=== PATIENT | female | born 1990 | race Caucasian/White ===

== ENCOUNTER → 2016-12-01 | Outpatient (CLI) | payer BC, OTHER ==
--- NOTE | 2016-12-02 07:51 | CONS ---
Consultation note for sleep apnea. A 26-year-old female patient was diagnosed having severe obstructive sleep apnea based on a home sleep study that was done through her primary care physician's office, Dr. Karman Quinn. She was referred to me for a CPAP treatment. She has a very complicated history of Budd-Chiari syndrome, ADHD, chronic back pain, anxiety, panic and chronic atrial fibrillation. 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 She is also on a combination of Strattera, Xanax and trazodone. Further more she is and she is in her fifth month of gestation. At this point in time, she is having excessive snoring. She stops breathing at night. She wakes up tired and fatigued during the day. She goes to bed around 10 p.m. and it takes her sometimes an hour or so to fall asleep. She is waking up tired and she has problem with memory, concentration and she feels sleepy throughout the day. She has also issues with dry mouth and occasional grinding of the teeth. PAST MEDICAL HISTORY: 1. Budd-Chiari malformation. 2. Seizure disorder. 3. ADHD. 4. Chronic back pain. 5. Anxiety/panic. 6. Chronic atrial fibrillation. 7. History of insomnia. Surgical history includes 3 back surgeries, 1 brain surgery, cholecystectomy, tubes in the ears. Drug allergies are to ULTRAM, DEMEROL, VALIUM, PENICILLINS, IODINE, LATEX, TRAMADOL, SEROQUEL, NEURONTIN and BACLOFEN. Outpatient medications include: 1. Morphine ( ) mg p.o. twice a day. 2. Strattera 40 mg p.o. q. day. 3. Xanax 0.5 mg on a p.r.n. basis. 4. Trazodone 100 mg p.o. q. day. Family history is positive for PAUL in the sister and both parents. REVIEW OF SYSTEMS: Twelve-point review of systems was done, positive findings all mentioned above in history of present illness. Her weight has been fluctuating and currently she is a 193 pounds, which is up due to . She has poor sleep quality in general. No sleep paralysis. No hallucinations. No cataplexy. Her current Quinton score is 20. BP 135/89. Pulse 100. Respirations 16. Temperature 98.7. Saturation 98% on room air. Weight is 193. Height is 5 feet 0 inches. Neck size is 16-1/4. BMI is 37. GENERAL APPEARANCE: Obese, calm, comfortable. HEENT: Short neck. Crowding of posterior pharynx. There is no goiter or neck mass. LUNGS: Diminished, otherwise, clear. HEART: Sounds regular rate and rhythm. Normal S1, S2. ABDOMEN: She has a gravid uterus. ( ) or guarding. EXTREMITIES: No edema, no cyanosis or clubbing. IMPRESSION: 1. Obstructive sleep apnea. 2. Chronic insomnia. 3. Budd-Chiari malformation with a previous surgical intervention. 4. Attention deficit hyperactivity disorder. 5. Chronic back pain. 6. Chronic narcotic medication use. 7. Anxiety, panic. 8. Chronic atrial fibrillation. PLAN: 1. Will review the home sleep study from Dr. Kamran Quinn's office. 2. Will set up this patient for a CPAP titration. 3. Continue the rest of the medications and keep them unchanged. 4. Will continue to follow. JUAN ANTONIO
== END | disposition home or self-care (01) ==
LOC: SLEEP 14:38
PROVIDERS: ATTEND Internal Medicine Critical Care Medicine
DX: G47.33 Obstructive sleep apnea (adult) (pediatric) (principal); F51.04 Psychophysiologic insomnia; F90.9 Attention-deficit hyperactivity disorder, unspecified type; M54.9 Dorsalgia, unspecified; G89.29 Other chronic pain; F41.9 Anxiety disorder, unspecified; F41.0 Panic disorder [episodic paroxysmal anxiety]; I48.2 Chronic atrial fibrillation; G93.5 Compression of brain
CPT/HCPCS: 99211

== ENCOUNTER → 2017-01-05 | Outpatient (CLI) | payer BC, OTHER ==
[2017-01-05 12:55] LABS: ALT 35 U/L (9-52); AST 21 U/L (14-36); Alkaline Phosphatase 78 U/L (38-126); Anion Gap 11 mmol/L; Blood Urea Nitrogen 6 mg/dL (7-17); Calcium 9.5 mg/dL (8.4-10.2); Carbon Dioxide 25 mmol/L (22-30); Chloride 104 mmol/L (98-107); Glucose 74 mg/dL (74-99); Non-African American GFR(MDRD) >60 (>60 ml/min/1.73 sqM); Potassium 4.5 mmol/L (3.5-5.1); Sodium 140 mmol/L (137-145); Total Bilirubin 0.2 mg/dL (0.2-1.3); Total Protein 7.6 g/dL (6.3-8.2)
[2017-01-05 12:56] LABS: CH 28.3; CHCM 32.8; HCT 34.5 % (34.0-46.0); HDW 2.92; HGB 11.6 gm/dL (11.4-16.0); MCH 29.1 pg (25.0-35.0); MCHC 33.6 g/dL (31.0-37.0); MCV 86.6 fL (80.0-100.0); Mean Platelet Volume 6.7; RBC 3.99 m/uL (3.80-5.40); RDW 13.9 % (11.5-15.5); WBC 7.8 k/uL (3.8-10.6)
== END | disposition home or self-care (01) ==
LOC: LABWHC1 12:02
PROVIDERS: ATTEND Psychiatry & Neurology Pain Medicine
DX: O00.90 Unspecified ectopic pregnancy without intrauterine pregnancy (principal); Z3A.00 Weeks of gestation of pregnancy not specified
CPT/HCPCS: 36415; 80053; 84702; 85027

== ENCOUNTER 2017-05-12 12:18 | Emergency (ER) | payer BC, OTHER ==
[2017-05-12] MEDS ORDERED: ASPIRIN 81 MG PO STA (12:45)
[2017-05-12] MEDS ORDERED: NITROGLYCERIN OINT 1 INCH/GM PACKET TOPICAL STA (12:45)
--- NOTE | 2017-05-12 12:47 | ED ---
General Adult HPI - General Chief complaint: Chest Pain Stated complaint: Chest Pain Time Seen by Provider: 05/12/17 12:25 Source: patient, EMS, RN notes reviewed Mode of arrival: EMS Limitations: no limitations - History of Present Illness Initial comments: This is a 26-year-old female who presents to the emergency department stating that she has had range surgery back surgery X topic multiple strokes in multiple heart attacks. Patient states she's never had a catheterization of her heart or a stent placed. Patient states she comes in today because she's had a three-day history of constant chest pain. Patient states the chest pain is worsened by movement of her neck. Patient denies any shortness of breath or difficulty breathing. Patient denies any diaphoretic episodes. Patient denies abdominal pain patient denies nausea vomiting diarrhea. Patient denies headache patient denies numbness weakness. Patient denies lightheadedness dizziness or near syncopal episode. - Related Data Home Medications Medication Instructions Recorded Confirmed ALPRAZolam [Xanax] 0.5 mg PO QID 05/12/17 05/12/17 Beclomethasone Dipropionate [Qvar 2 puff INHALATION RT-BID 05/12/17 05/12/17 80 mcg] Carvedilol [Coreg] 6.25 mg PO BID 05/12/17 05/12/17 Levalbuterol Hfa Inhaler [Xopenex 1 puff INHALATION RT-Q6H PRN 05/12/17 05/12/17 Hfa Inhaler] Menthol [Biofreeze] 1 applic TOPICAL Q6H PRN 05/12/17 05/12/17 Morphine Sulfate [Ms Contin] 60 mg PO Q12HR 05/12/17 05/12/17 Ondansetron HCl [Zofran] 8 mg PO Q8H PRN 05/12/17 05/12/17 traZODone HCL [Desyrel] 100 mg PO HS 05/12/17 05/12/17 Allergies Allergy/AdvReac Type Severity Reaction Status Date / Time amoxicillin Allergy Unknown Verified 05/12/17 14:05 baclofen Allergy Unknown Verified 05/12/17 14:05 diazepam [From Valium] Allergy Unknown Verified 05/12/17 14:05 eszopiclone [From Lunesta] Allergy Unknown Verified 05/12/17 14:05 gabapentin Allergy Unknown Verified 05/12/17 14:05 iodine Allergy Unknown Verified 05/12/17 14:05 latex Allergy Unknown Verified 05/12/17 14:05 lorazepam Allergy Unknown Verified 05/12/17 14:05 meperidine [From Demerol] Allergy Unknown Verified 05/12/17 14:05 nitrofurantoin Allergy Unknown Verified 05/12/17 14:05 Penicillins Allergy Unknown Verified 05/12/17 14:05 phenytoin [From Dilantin] Allergy Unknown Verified 05/12/17 14:05 quetiapine [From Seroquel] Allergy Unknown Verified 05/12/17 14:05 sulfamethoxazole Allergy Unknown Verified 05/12/17 14:05 [From Bactrim] tramadol Allergy Unknown Verified 05/12/17 14:05 trimethoprim [From Bactrim] Allergy Unknown Verified 05/12/17 14:05 chlorine Allergy Unknown Uncoded 05/12/17 12:39 loxagile acid Allergy Unknown Uncoded 05/12/17 12:43 loxaglate Allergy Unknown Uncoded 05/12/17 12:39 Review of Systems ROS Statement: Those systems with pertinent positive or pertinent negative responses have been documented in the HPI. ROS Other: All systems not noted in ROS Statement are negative. Past Medical History Past Medical History: Atrial Fibrillation, CVA/TIA, Fibromyalgia, Myocardial Infarction (CO), Supraventricular Tachycardia (SVT) Additional Past Medical History / Comment(s): low BP, tacycardia History of Any Multi-Drug Resistant Organisms: MRSA Date of last positivie culture/infection: 2009 MDRO Source:: face Past Surgical History: Back Surgery, Cholecystectomy Additional Past Surgical History / Comment(s): loop recorder, brain Past Psychological History: Anxiety, Depression Smoking Status: Current some day smoker Past Alcohol Use History: None Reported Past Drug Use History: None Reported General Exam - General Exam Comments Initial Comments: GENERAL: Patient is well-developed and well-nourished. Patient is nontoxic and well- hydrated and is in no acute distress. ENT: Neck is soft and supple. No significant lymphadenopathy is noted. Oropharynx is clear. Moist mucous membranes. Neck has full range of motion without eliciting any pain. EYES: The sclera were anicteric and conjunctiva were pink and moist. Extraocular movements were intact and pupils were equal round and reactive to light. Eyelids were unremarkable. PULMONARY: Unlabored respirations. Good breath sounds bilaterally. No audible rales rhonchi or wheezing was noted. CARDIOVASCULAR: There is a regular rate and rhythm without any murmurs gallops or rubs. ABDOMEN: Soft and nontender with normal bowel sounds. No palpable organomegaly was noted. There is no palpable pulsatile mass. SKIN: Skin is clear with no lesions or rashes and otherwise unremarkable. NEUROLOGIC: Patient is alert and oriented x3. Cranial nerves II through XII are grossly intact. Motor and sensory are also intact. Normal speech, volume and content. Symmetrical smile. MUSCULOSKELETAL: Normal extremities with adequate strength and full range of motion. LYMPHATICS: No significant lymphadenopathy is noted PSYCHIATRIC: Normal psychiatric evaluation. Limitations: no limitations Course Vital Signs 05/12/17 05/12/17 12:25 13:49 Temperature 98.4 F Pulse Rate 114 H 94 Respiratory 18 16 Rate Blood Pressure 93/57 122/80 O2 Sat by Pulse 96 99 Oximetry Medical Decision Making - Medical Decision Making EKG shows sinus tachycardia at 108 bpm ND interval is 134 QRS is 98 QT interval 370 QTC is 495. Patient's EKG shows some T-wave inversions in leads V1 through V3 as well as lead 3. There is no ST segment elevation noted Patient states that she has had V. tach SVT and A. fib. Because the patient's significant cardiac history and stroke history we attempted to get old records we were unable to. I told the patient I wanted to stay in the emergency department she stated she had to go get her kids so she refused to stay she understands the risks she signed out AMA - Lab Data Result diagrams: 05/12/17 12:44 05/12/17 13:15 Lab Results 05/12/17 05/12/17 05/12/17 Range/Units 12:44 12:44 13:15 WBC 11.7 H (3.8-10.6) k/uL RBC 4.50 (3.80-5.40) m/uL Hgb 12.2 (11.4-16.0) gm/dL Hct 37.2 (34.0-46.0) % MCV 82.6 (80.0-100.0) fL MCH 27.1 (25.0-35.0) pg MCHC 32.9 (31.0-37.0) g/dL RDW 15.3 (11.5-15.5) % Plt Count 335 (150-450) k/uL Neutrophils % 62 % Lymphocytes % 29 % Monocytes % 5 % Eosinophils % 2 % Basophils % 1 % Neutrophils # 7.2 (1.3-7.7) k/uL Lymphocytes # 3.4 (1.0-4.8) k/uL Monocytes # 0.6 (0-1.0) k/uL Eosinophils # 0.2 (0-0.7) k/uL Basophils # 0.1 (0-0.2) k/uL PT 9.9 (9.0-12.0) sec INR 1.0 (<1.2) APTT 20.4 L (22.0-30.0) sec Sodium (137-145) mmol/L Potassium (3.5-5.1) mmol/L Chloride (98-107) mmol/L Carbon Dioxide (22-30) mmol/L Anion Gap mmol/L BUN (7-17) mg/dL Creatinine (0.52-1.04) mg/dL Est GFR (MDRD) Af Amer (>60 ml/min/1.73 sqM) Est GFR (MDRD) Non-Af (>60 ml/min/1.73 sqM) Glucose (74-99) mg/dL Calcium (8.4-10.2) mg/dL Magnesium (1.6-2.3) mg/dL Total Bilirubin (0.2-1.3) mg/dL AST (14-36) U/L ALT (9-52) U/L Alkaline Phosphatase (38-126) U/L Total Creatine Kinase 48 (30-135) U/L CK-MB (CK-2) 0.7 (0.0-2.4) ng/mL CK-MB (CK-2) Rel Index 1.5 Troponin I <0.012 (0.000-0.034) ng/mL Total Protein (6.3-8.2) g/dL Albumin (3.5-5.0) g/dL 05/12/17 Range/Units 13:15 WBC (3.8-10.6) k/uL RBC (3.80-5.40) m/uL Hgb (11.4-16.0) gm/dL Hct (34.0-46.0) % MCV (80.0-100.0) fL MCH (25.0-35.0) pg MCHC (31.0-37.0) g/dL RDW (11.5-15.5) % Plt Count (150-450) k/uL Neutrophils % % Lymphocytes % % Monocytes % % Eosinophils % % Basophils % % Neutrophils # (1.3-7.7) k/uL Lymphocytes # (1.0-4.8) k/uL Monocytes # (0-1.0) k/uL Eosinophils # (0-0.7) k/uL Basophils # (0-0.2) k/uL PT (9.0-12.0) sec INR (<1.2) APTT (22.0-30.0) sec Sodium 140 (137-145) mmol/L Potassium 4.0 (3.5-5.1) mmol/L Chloride 106 (98-107) mmol/L Carbon Dioxide 23 (22-30) mmol/L Anion Gap 11 mmol/L BUN 3 L (7-17) mg/dL Creatinine 0.55 (0.52-1.04) mg/dL Est GFR (MDRD) Af Amer >60 (>60 ml/min/1.73 sqM) Est GFR (MDRD) Non-Af >60 (>60 ml/min/1.73 sqM) Glucose 82 (74-99) mg/dL Calcium 9.6 (8.4-10.2) mg/dL Magnesium 1.8 (1.6-2.3) mg/dL Total Bilirubin 0.2 (0.2-1.3) mg/dL AST 22 (14-36) U/L ALT 37 (9-52) U/L Alkaline Phosphatase 67 (38-126) U/L Total Creatine Kinase (30-135) U/L CK-MB (CK-2) (0.0-2.4) ng/mL CK-MB (CK-2) Rel Index Troponin I (0.000-0.034) ng/mL Total Protein 6.9 (6.3-8.2) g/dL Albumin 4.0 (3.5-5.0) g/dL Disposition Clinical Impression: Chest pain Disposition: Left Against Medical Advice Referrals: Benji Quinn MD [Primary Care Provider] - 1-2 days Time of Disposition: 14:57
[2017-05-12 13:02] LABS: Basophils # (A) 0.1 k/uL (0-0.2); Basophils % (A) 1 %; Eosinophils # (A) 0.2 k/uL (0-0.7); Eosinophils % (A) 2 %; HCT 37.2 % (34.0-46.0); HGB 12.2 gm/dL (11.4-16.0); Lymphocytes # (A) 3.4 k/uL (1.0-4.8); Lymphocytes % (A) 29 %; MCH 27.1 pg (25.0-35.0); MCHC 32.9 g/dL (31.0-37.0); MCV 82.6 fL (80.0-100.0); Mean Platelet Volume 7.7; Monocytes # (A) 0.6 k/uL (0-1.0); Monocytes % (A) 5 %; Neutrophils # (A) 7.2 k/uL (1.3-7.7); Neutrophils % (A) 62 %; Platelet Count 335 k/uL (150-450); RDW 15.3 % (11.5-15.5); WBC 11.7 k/uL (3.8-10.6)
--- NOTE | 2017-05-12 13:22 | XR ---
EXAMINATION TYPE: XR chest 2V DATE OF EXAM: 05/12/2017 COMPARISON: NONE INDICATION: Chest pain TECHNIQUE: Frontal and lateral views of the chest are obtained. FINDINGS: The heart size is normal. The pulmonary vasculature is normal. The lungs are clear. There is a scoliosis present with convexity to the right. Right thoracic cavity is slightly smaller than the left. IMPRESSION: 1. No acute pulmonary process. 2. Scoliosis
[2017-05-12 13:34] LABS: Prothrombin Time 9.9 sec (9.0-12.0)
[2017-05-12 13:35] LABS: ALT 37 U/L (9-52); AST 22 U/L (14-36); Alkaline Phosphatase 67 U/L (38-126); Anion Gap 11 mmol/L; Blood Urea Nitrogen 3 mg/dL (7-17); Calcium 9.6 mg/dL (8.4-10.2); Carbon Dioxide 23 mmol/L (22-30); Chloride 106 mmol/L (98-107); Glucose 82 mg/dL (74-99); Magnesium 1.8 mg/dL (1.6-2.3); Sodium 140 mmol/L (137-145); Total Bilirubin 0.2 mg/dL (0.2-1.3); Total Protein 6.9 g/dL (6.3-8.2)
[2017-05-12 13:35] LABS: Partial Thromboplastin Time 20.4 sec (22.0-30.0)
[2017-05-12 13:48] LABS: Creatine Kinase 48 U/L (30-135)
[2017-05-12 14:01] LABS: Creatine Kinase MB 0.7 ng/mL (0.0-2.4); Troponin I <0.012 ng/mL (0.000-0.034)
[2017-05-12 23:27] VITALS: BP 127/69; PULSE 82; RESP 18; TEMP 98.1
== END 2017-05-12 15:02 | disposition left against medical advice (07) ==
LOC: EC 12:18
DX: R07.9 Chest pain, unspecified (principal); I48.91 Unspecified atrial fibrillation; M79.7 Fibromyalgia; I25.2 Old myocardial infarction; F32.9 Major depressive disorder, single episode, unspecified; F41.9 Anxiety disorder, unspecified; F17.200 Nicotine dependence, unspecified, uncomplicated; Z86.73 Personal history of transient ischemic attack (TIA), and cerebral infarction without residual deficits; Z86.14 Personal history of Methicillin resistant Staphylococcus aureus infection; Z79.51 Long term (current) use of inhaled steroids; Z79.891 Long term (current) use of opiate analgesic; Z79.899 Other long term (current) drug therapy; Z88.0 Allergy status to penicillin; Z88.2 Allergy status to sulfonamides; Z88.8 Allergy status to other drugs, medicaments and biological substances; Z88.6 Allergy status to analgesic agent; Z91.040 Latex allergy status; Z88.5 Allergy status to narcotic agent; Z91.048 Other nonmedicinal substance allergy status
CPT/HCPCS: 36415; 71046; 80053; 82550; 82553; 83735; 84484; 85025; 85610; 85730; 93005; 99285

== ENCOUNTER 2017-05-13 01:39 | Observation (INO) | payer BC, OTHER ==
[2017-05-13] MEDS ORDERED: SODIUM CHLORIDE 0.9% 1,000 ML IV STA ×2 (02:34)
[2017-05-13] MEDS ORDERED: MORPHINE SULFATE 5 MG/ML SYRINGE IV STA (02:34)
[2017-05-13] MEDS ORDERED: RX INFO: IV CONTRAST WAS GIVEN 1 EACH MISC MISCELLANE PRN (02:34)
[2017-05-13] MEDS ORDERED: diphenhydrAMINE 50 MG/ML 1 ML VIAL IVP STA (02:35)
[2017-05-13] MEDS ORDERED: FAMOTIDINE 20 MG/2 ML VIAL IV STA (02:35)
[2017-05-13] MEDS ORDERED: methylPREDNISolone SOD SUCCI 125 MG/2 ML VIAL IV STA (02:35)
[2017-05-13 02:45] LABS: Basophils % (A) 0 %; Eosinophils # (A) 0.1 k/uL (0-0.7); Eosinophils % (A) 1 %; HCT 38.7 % (34.0-46.0); HGB 12.2 gm/dL (11.4-16.0); Lymphocytes % (A) 6 %; MCH 26.9 pg (25.0-35.0); MCHC 31.6 g/dL (31.0-37.0); MCV 85.1 fL (80.0-100.0); Mean Platelet Volume 7.3; Monocytes # (A) 0.3 k/uL (0-1.0); Monocytes % (A) 2 %; Neutrophils # (A) 16.5 k/uL (1.3-7.7); Neutrophils % (A) 92 %; Platelet Count 394 k/uL (150-450); RBC 4.55 m/uL (3.80-5.40); RDW 15.6 % (11.5-15.5)
[2017-05-13 02:49] LABS: ALT 32 U/L (9-52); AST 27 U/L (14-36); Albumin 4.5 g/dL (3.5-5.0); Alkaline Phosphatase 67 U/L (38-126); Anion Gap 15 mmol/L; Blood Urea Nitrogen 3 mg/dL (7-17); Calcium 10.2 mg/dL (8.4-10.2); Carbon Dioxide 20 mmol/L (22-30); Chloride 103 mmol/L (98-107); Glucose 217 mg/dL (74-99); Lipase 34 U/L (23-300); Magnesium 1.6 mg/dL (1.6-2.3); Potassium 4.4 mmol/L (3.5-5.1); Sodium 138 mmol/L (137-145); Total Bilirubin 0.3 mg/dL (0.2-1.3); Total Protein 7.7 g/dL (6.3-8.2)
[2017-05-13 02:56] LABS: Creatine Kinase 56 U/L (30-135)
[2017-05-13 03:09] LABS: Creatine Kinase MB 0.7 ng/mL (0.0-2.4); Troponin I <0.012 ng/mL (0.000-0.034)
--- NOTE | 2017-05-13 03:10 | ED ---
General Adult HPI - General Chief complaint: Chest Pain Stated complaint: CHEST PAIN Time Seen by Provider: 05/13/17 01:54 Source: patient, family, RN notes reviewed, old records reviewed Mode of arrival: ambulatory Limitations: no limitations - History of Present Illness Initial comments: This is a 18-year-old female ER for evaluation of chest pain. Patient presents today as a repeat evaluation of chest pain. Patient states she has significant medical problems according stroke heart attack and multiple rhythm abnormalities with her heart. Patient denies any fevers congestion. She denies any symptom improvement when she went home. She denies nausea no vomiting no fevers. - Related Data Home Medications Medication Instructions Recorded Confirmed ALPRAZolam [Xanax] 0.5 mg PO QID 05/12/17 05/13/17 Beclomethasone Dipropionate [Qvar 2 puff INHALATION RT-BID 05/12/17 05/13/17 80 mcg] Carvedilol [Coreg] 6.25 mg PO BID 05/12/17 05/13/17 Levalbuterol Hfa Inhaler [Xopenex 1 puff INHALATION RT-Q6H PRN 05/12/17 05/13/17 Hfa Inhaler] Menthol [Biofreeze] 1 applic TOPICAL Q6H PRN 05/12/17 05/13/17 Morphine Sulfate [Ms Contin] 60 mg PO Q12HR 05/12/17 05/13/17 Ondansetron HCl [Zofran] 8 mg PO Q8H PRN 05/12/17 05/13/17 traZODone HCL [Desyrel] 100 mg PO HS 05/12/17 05/13/17 Allergies Allergy/AdvReac Type Severity Reaction Status Date / Time amoxicillin Allergy Unknown Verified 05/13/17 01:45 baclofen Allergy Unknown Verified 05/13/17 01:45 diazepam [From Valium] Allergy Unknown Verified 05/13/17 01:45 eszopiclone [From Lunesta] Allergy Unknown Verified 05/13/17 01:45 gabapentin Allergy Unknown Verified 05/13/17 01:45 iodine Allergy Unknown Verified 05/13/17 01:45 latex Allergy Unknown Verified 05/13/17 01:45 lorazepam Allergy Unknown Verified 05/13/17 01:45 meperidine [From Demerol] Allergy Unknown Verified 05/13/17 01:45 nitrofurantoin Allergy Unknown Verified 05/13/17 01:45 Penicillins Allergy Unknown Verified 05/13/17 01:45 phenytoin [From Dilantin] Allergy Unknown Verified 05/13/17 01:45 quetiapine [From Seroquel] Allergy Unknown Verified 05/13/17 01:45 sulfamethoxazole Allergy Unknown Verified 05/13/17 01:45 [From Bactrim] tramadol Allergy Unknown Verified 05/13/17 01:45 trimethoprim [From Bactrim] Allergy Unknown Verified 05/13/17 01:45 chlorine Allergy Unknown Uncoded 05/13/17 01:45 loxagile acid Allergy Unknown Uncoded 05/13/17 01:45 loxaglate Allergy Unknown Uncoded 05/13/17 01:45 Review of Systems ROS Statement: Those systems with pertinent positive or pertinent negative responses have been documented in the HPI. ROS Other: All systems not noted in ROS Statement are negative. Past Medical History Past Medical History: Atrial Fibrillation, CVA/TIA, Fibromyalgia, Myocardial Infarction (CO), Supraventricular Tachycardia (SVT) Additional Past Medical History / Comment(s): low BP, tacycardia History of Any Multi-Drug Resistant Organisms: MRSA Date of last positivie culture/infection: 2009 MDRO Source:: face Past Surgical History: Back Surgery, Cholecystectomy Additional Past Surgical History / Comment(s): loop recorder, brain Past Psychological History: Anxiety, Depression Smoking Status: Current some day smoker Past Alcohol Use History: None Reported Past Drug Use History: None Reported General Exam Limitations: no limitations General appearance: alert, in no apparent distress, anxious Head exam: Present: atraumatic, normocephalic, normal inspection Eye exam: Present: normal appearance, PERRL, EOMI. Absent: scleral icterus, conjunctival injection, periorbital swelling ENT exam: Present: normal exam, mucous membranes moist Neck exam: Present: normal inspection. Absent: tenderness, meningismus, lymphadenopathy Respiratory exam: Present: normal lung sounds bilaterally. Absent: respiratory distress, wheezes, rales, rhonchi, stridor Cardiovascular Exam: Present: regular rate, normal rhythm, normal heart sounds. Absent: systolic murmur, diastolic murmur, rubs, gallop, clicks GI/Abdominal exam: Present: soft, normal bowel sounds. Absent: distended, tenderness, guarding, rebound, rigid Extremities exam: Present: normal inspection, full ROM, normal capillary refill. Absent: tenderness, pedal edema, joint swelling, calf tenderness Back exam: Present: normal inspection Neurological exam: Present: alert, oriented X3, CN II-XII intact Psychiatric exam: Present: normal affect, normal mood Skin exam: Present: warm, dry, intact, normal color. Absent: rash Course Vital Signs 05/13/17 01:40 Temperature 97.8 F Pulse Rate 98 Respiratory 22 Rate Blood Pressure 137/91 O2 Sat by Pulse 100 Oximetry - Reevaluation(s) Reevaluation #1: 05/13/17 03:43 ER visit from earlier in the day is reviewed. Patient states she is not feeling better than prior ER visit Reevaluation #2: 05/13/17 05:01 Patient was reexamined after, patient developed left-sided facial droop: No other neurological symptoms noticed, that did appear to improve over tincture of time after she did get sent for brain CT. NIH was 1, has improved. Not a TPA candidate secondary to low neurological symptoms. Patient will be admitted again for continued neurological monitor EKG Findings - EKG Comments: EKG Findings:: EKG shows normal sinus rhythm rate of 89, UT 152, QRS 102, QTc 464 Medical Decision Making - Medical Decision Making 18 female will be For cardiac observation, and initial labs, troponin, CT angios of chest are all negative - Lab Data Result diagrams: 05/13/17 02:11 05/13/17 02:11 Lab Results 05/13/17 05/13/17 05/13/17 Range/Units 02:11 02:11 02:11 WBC 18.0 H (3.8-10.6) k/uL RBC 4.55 (3.80-5.40) m/uL Hgb 12.2 (11.4-16.0) gm/dL Hct 38.7 (34.0-46.0) % MCV 85.1 (80.0-100.0) fL MCH 26.9 (25.0-35.0) pg MCHC 31.6 (31.0-37.0) g/dL RDW 15.6 H (11.5-15.5) % Plt Count 394 (150-450) k/uL Neutrophils % 92 % Lymphocytes % 6 % Monocytes % 2 % Eosinophils % 1 % Basophils % 0 % Neutrophils # 16.5 H (1.3-7.7) k/uL Lymphocytes # 1.0 (1.0-4.8) k/uL Monocytes # 0.3 (0-1.0) k/uL Eosinophils # 0.1 (0-0.7) k/uL Basophils # 0.0 (0-0.2) k/uL PT (9.0-12.0) sec INR (<1.2) APTT (22.0-30.0) sec D-Dimer (<0.60) mg/L FEU Sodium 138 (137-145) mmol/L Potassium 4.4 (3.5-5.1) mmol/L Chloride 103 (98-107) mmol/L Carbon Dioxide 20 L (22-30) mmol/L Anion Gap 15 mmol/L BUN 3 L (7-17) mg/dL Creatinine 0.60 (0.52-1.04) mg/dL Est GFR (MDRD) Af Amer >60 (>60 ml/min/1.73 sqM) Est GFR (MDRD) Non-Af >60 (>60 ml/min/1.73 sqM) Glucose 217 H (74-99) mg/dL Calcium 10.2 (8.4-10.2) mg/dL Magnesium 1.6 (1.6-2.3) mg/dL Total Bilirubin 0.3 (0.2-1.3) mg/dL AST 27 (14-36) U/L ALT 32 (9-52) U/L Alkaline Phosphatase 67 (38-126) U/L Total Creatine Kinase 56 (30-135) U/L CK-MB (CK-2) 0.7 (0.0-2.4) ng/mL CK-MB (CK-2) Rel Index 1.3 Troponin I <0.012 (0.000-0.034) ng/mL NT-Pro-B Natriuret Pep pg/mL Total Protein 7.7 (6.3-8.2) g/dL Albumin 4.5 (3.5-5.0) g/dL Lipase 34 (23-300) U/L HCG, Qual Urine Color Urine Appearance (Clear) Urine pH (5.0-8.0) Ur Specific Monitor (1.001-1.035) Urine Protein (Negative) Urine Glucose (UA) (Negative) Urine Ketones (Negative) Urine Blood (Negative) Urine Nitrite (Negative) Urine Bilirubin (Negative) Urine Urobilinogen (<2.0) mg/dL Ur Leukocyte Esterase (Negative) Urine HCG, Qual (Not Detectd) 05/13/17 05/13/17 05/13/17 Range/Units 02:11 02:11 02:52 WBC (3.8-10.6) k/uL RBC (3.80-5.40) m/uL Hgb (11.4-16.0) gm/dL Hct (34.0-46.0) % MCV (80.0-100.0) fL MCH (25.0-35.0) pg MCHC (31.0-37.0) g/dL RDW (11.5-15.5) % Plt Count (150-450) k/uL Neutrophils % % Lymphocytes % % Monocytes % % Eosinophils % % Basophils % % Neutrophils # (1.3-7.7) k/uL Lymphocytes # (1.0-4.8) k/uL Monocytes # (0-1.0) k/uL Eosinophils # (0-0.7) k/uL Basophils # (0-0.2) k/uL PT 9.8 (9.0-12.0) sec INR 1.0 (<1.2) APTT 20.4 L (22.0-30.0) sec D-Dimer 0.58 (<0.60) mg/L FEU Sodium (137-145) mmol/L Potassium (3.5-5.1) mmol/L Chloride (98-107) mmol/L Carbon Dioxide (22-30) mmol/L Anion Gap mmol/L BUN (7-17) mg/dL Creatinine (0.52-1.04) mg/dL Est GFR (MDRD) Af Amer (>60 ml/min/1.73 sqM) Est GFR (MDRD) Non-Af (>60 ml/min/1.73 sqM) Glucose (74-99) mg/dL Calcium (8.4-10.2) mg/dL Magnesium (1.6-2.3) mg/dL Total Bilirubin (0.2-1.3) mg/dL AST (14-36) U/L ALT (9-52) U/L Alkaline Phosphatase (38-126) U/L Total Creatine Kinase (30-135) U/L CK-MB (CK-2) (0.0-2.4) ng/mL CK-MB (CK-2) Rel Index Troponin I (0.000-0.034) ng/mL NT-Pro-B Natriuret Pep 97 pg/mL Total Protein (6.3-8.2) g/dL Albumin (3.5-5.0) g/dL Lipase (23-300) U/L HCG, Qual Urine Color Colorless Urine Appearance Clear (Clear) Urine pH 5.5 (5.0-8.0) Ur Specific Monitor 1.002 (1.001-1.035) Urine Protein Negative (Negative) Urine Glucose (UA) 2+ H (Negative) Urine Ketones Negative (Negative) Urine Blood Negative (Negative) Urine Nitrite Negative (Negative) Urine Bilirubin Negative (Negative) Urine Urobilinogen <2.0 (<2.0) mg/dL Ur Leukocyte Esterase Negative (Negative) Urine HCG, Qual (Not Detectd) 05/13/17 05/13/17 Range/Units 02:52 02:52 WBC (3.8-10.6) k/uL RBC (3.80-5.40) m/uL Hgb (11.4-16.0) gm/dL Hct (34.0-46.0) % MCV (80.0-100.0) fL MCH (25.0-35.0) pg MCHC (31.0-37.0) g/dL RDW (11.5-15.5) % Plt Count (150-450) k/uL Neutrophils % % Lymphocytes % % Monocytes % % Eosinophils % % Basophils % % Neutrophils # (1.3-7.7) k/uL Lymphocytes # (1.0-4.8) k/uL Monocytes # (0-1.0) k/uL Eosinophils # (0-0.7) k/uL Basophils # (0-0.2) k/uL PT (9.0-12.0) sec INR (<1.2) APTT (22.0-30.0) sec D-Dimer (<0.60) mg/L FEU Sodium (137-145) mmol/L Potassium (3.5-5.1) mmol/L Chloride (98-107) mmol/L Carbon Dioxide (22-30) mmol/L Anion Gap mmol/L BUN (7-17) mg/dL Creatinine (0.52-1.04) mg/dL Est GFR (MDRD) Af Amer (>60 ml/min/1.73 sqM) Est GFR (MDRD) Non-Af (>60 ml/min/1.73 sqM) Glucose (74-99) mg/dL Calcium (8.4-10.2) mg/dL Magnesium (1.6-2.3) mg/dL Total Bilirubin (0.2-1.3) mg/dL AST (14-36) U/L ALT (9-52) U/L Alkaline Phosphatase (38-126) U/L Total Creatine Kinase (30-135) U/L CK-MB (CK-2) (0.0-2.4) ng/mL CK-MB (CK-2) Rel Index Troponin I (0.000-0.034) ng/mL NT-Pro-B Natriuret Pep pg/mL Total Protein (6.3-8.2) g/dL Albumin (3.5-5.0) g/dL Lipase (23-300) U/L HCG, Qual Not Detected Urine Color Urine Appearance (Clear) Urine pH (5.0-8.0) Ur Specific Monitor (1.001-1.035) Urine Protein (Negative) Urine Glucose (UA) (Negative) Urine Ketones (Negative) Urine Blood (Negative) Urine Nitrite (Negative) Urine Bilirubin (Negative) Urine Urobilinogen (<2.0) mg/dL Ur Leukocyte Esterase (Negative) Urine HCG, Qual Not Detected (Not Detectd) Disposition Clinical Impression: Chest pain, CVA (cerebral vascular accident), TIA (transient ischemic attack) Disposition: ADMITTED IP TO THIS HOSP Condition: Undetermined
[2017-05-13 03:12] LABS: D-Dimer 0.58 mg/L FEU (<0.60); Prothrombin Time 9.8 sec (9.0-12.0)
[2017-05-13 03:15] LABS: Appearance,Urine Clear (Clear); Bilirubin,Urine Negative (Negative); Blood,Urine Negative (Negative); Color,Urine Colorless; Glucose,Urine (UA) 2+ (Negative); Ketones,Urine Negative (Negative); Leukocyte Esterase,Urine Negative (Negative); Nitrite,Urine Negative (Negative); PH, Urine 5.5 (5.0-8.0); Protein,Urine Negative (Negative); Specific Gravity,Urine 1.002 (1.001-1.035); Urobilinogen,Urine <2.0 mg/dL (<2.0)
[2017-05-13 03:24] LABS: Partial Thromboplastin Time 20.4 sec (22.0-30.0)
[2017-05-13] MEDS ORDERED: MORPHINE SULFATE 5 MG/ML SYRINGE IV PRN (03:44)
[2017-05-13] MEDS ORDERED: NITROGLYCERIN SL TABS 0.4 MG TAB SUBLINGUAL PRN (03:44)
[2017-05-13] MEDS ORDERED: ACETAMINOPHEN IV (For NPO) 1,000 MG in EMPTY BAG 1 BAG IVPB STA (03:52)
--- NOTE | 2017-05-13 04:09 | CT ---
EXAM: CT Angiography Chest With Intravenous Contrast CLINICAL HISTORY: Reason: Pain TECHNIQUE: Axial computed tomographic angiography images of the chest with intravenous contrast using pulmonary embolism protocol. CTDI is 123.7 mGy and DLP is 620.50 mGy-cm. This CT exam was performed using one or more of the following dose reduction techniques: automated exposure control, adjustment of the mA and/or kV according to patient size, and/or use of iterative reconstruction technique. MIP reconstructed images were created and reviewed. Coronal and sagittal reformatted images were created and reviewed. COMPARISON: None. FINDINGS: Limitations: Suboptimal opacification of the pulmonary arteries. Artifact from contrast in the superior vena cava. Pulmonary arteries: The main pulmonary artery is patent without filling defects. The right and left pulmonary arteries are patent without large filling defect. The proximal subsegmental branches demonstrate no obvious abnormalities. Distal subsegmental branches are limited. Aorta: No acute findings. No thoracic aortic aneurysm. Lungs: Unremarkable. No mass. No consolidation. Pleural space: Unremarkable. No significant effusion. No pneumothorax. Heart: Unremarkable. No cardiomegaly. No significant pericardial effusion. No evidence of RV dysfunction. Bones/joints: The osseous thorax is unaltered by S-shaped scoliosis of the thoracic spine. No acute fracture. No dislocation. Soft tissues: Unremarkable. Lymph nodes: Unremarkable. No enlarged lymph nodes. IMPRESSION: Suboptimal imaging of the pulmonary arteries. However, the main, right and left pulmonary arteries demonstrate no definitive evidence for pulmonary embolism. Subsegmental branch evaluation is limited. No segmental airspace disease.
--- NOTE | 2017-05-13 05:02 | CT ---
EXAM: CT Head Without Intravenous Contrast CLINICAL HISTORY: Reason: pain TECHNIQUE: Axial computed tomography images of the head/brain without intravenous contrast. CTDI is 57.4 mGy and DLP is 941.30 mGy-cm. This CT exam was performed using one or more of the following dose reduction techniques: automated exposure control, adjustment of the mA and/or kV according to patient size, and/or use of iterative reconstruction technique. COMPARISON: None. FINDINGS: Brain: The basilar cisterns are patent. No hemorrhage. No significant white matter disease. No edema. Ventricles: Unremarkable. No ventriculomegaly. Bones/joints: Unremarkable. No acute fracture. Suboccipital craniotomy identified. Soft tissues: Unremarkable. Sinuses: Unremarkable as visualized. No acute sinusitis. Mastoid air cells: Unremarkable as visualized. No mastoid effusion. IMPRESSION: Suboccipital craniotomy identified. No acute intracranial process identified.
[2017-05-13] MEDS ORDERED: HEPARIN SODIUM,PORCINE 5,000 UNIT/ML 1 ML VIAL IV PRN (05:06)
[2017-05-13] MEDS ORDERED: HEPARIN SODIUM,PORCINE 5,000 UNIT/ML 1 ML VIAL IV ONE (05:06)
[2017-05-13] MEDS ORDERED: HEPARIN SOD,PORK IN 0.45% NACL 25,000 UNIT in 0.45% NACL 1 500ML.BAG IV SCH (05:15)
[2017-05-13] MEDS: SODIUM CHLORIDE 0.9% 1,000 ML IV SCH ×3 (06:37→17:12)
[2017-05-13 08:53] LABS: Creatine Kinase 39 U/L (30-135)
[2017-05-13] MEDS ORDERED: ACETAMINOPHEN TAB 325 MG TAB PO PRN (08:53)
[2017-05-13] MEDS ORDERED: PANTOPRAZOLE 40 MG/10 ML VIAL IVP SCH (09:00)
[2017-05-13] MEDS ORDERED: ATORVASTATIN 80 MG TAB PO SCH (09:00)
[2017-05-13] MEDS ORDERED: METOPROLOL TARTRATE 25 MG TAB PO SCH (09:00)
[2017-05-13 09:05] LABS: Creatine Kinase MB 0.4 ng/mL (0.0-2.4); Troponin I <0.012 ng/mL (0.000-0.034)
[2017-05-13] MEDS ORDERED: MENTHOL-CAMPHOR LOTION 222 APPLIC/222 ML BOTTLE TOPICAL PRN (09:26)
[2017-05-13] MEDS ORDERED: DOBUTamine DRIP for NUC MED 500 MG in DEXTROSE/WATER 1 250ML.BAG IV ONE (10:20)
--- NOTE | 2017-05-13 10:33 | P.CRDCN ---
History of Present Illness Consult reason: chest pain History of present illness: Patient interviewed and examined in the ESU with nurse practitioner Atypical chest discomfort Multitude of other medical complaints Known atrial fibrillation followed at [facility] Cardiac enzymes are normal EKG shows [address] depressions in anterior precordial leads Impression Atypical chest discomfort known atrial fibrillation Suggest 2-D echo and Doppler study Dobutamine stress echo If normal she should go back in follow-up with her primary knifeman and general repairer in [place] Past Medical History Past Medical History: Atrial Fibrillation, Asthma, CVA/TIA, Eye Disorder, Fibromyalgia, Myocardial Infarction ([place]), Pneumonia, Sleep Apnea/CPAP/BIPAP, Supraventricular Tachycardia (SVT) Additional Past Medical History / Comment(s): Pt states she is currently being treated for a sinus infection. Other HX: Pt states she has been told she has had at least 4 MIs determined by EKG (pt states she has never had a cardiac cath), pt states she has had multiple CVAs with L arm and L leg weakness as a residual, tachycardia, hypotension, PAUL-no device yet, nasal polypes, L eye limited vision, L eye strabismus with surgical correction, chronic back pain, scoliosis as a child (had surgery), bronchitis, hypoglycemia. Last Myocardial Infarction Date:: unkn History of Any Multi-Drug Resistant Organisms: MRSA Date of last positivie culture/infection: 2009 MDRO Source:: face Past Surgical History: Back Surgery, Cholecystectomy Additional Past Surgical History / Comment(s): Brain surgery for malformation, loop recorder, 2 back surgeries-rods since removed but pt states still has piece of a screw left. Past Anesthesia/Blood Transfusion Reactions: No Reported Reaction Smoking Status: Former smoker - Past Family History Mother Family Medical History: Respiratory Disorder Additional Family Medical History / Comment(s): Bronchitis, TB. Mother is . Medications and Allergies Home Medications Medication Instructions Recorded Confirmed Type ALPRAZolam [Xanax] 0.5 mg PO QID 05/12/17 05/13/17 History Beclomethasone Dipropionate [Qvar 2 puff INHALATION RT-BID 05/12/17 05/13/17 History 80 mcg] Carvedilol [Coreg] 6.25 mg PO BID 05/12/17 05/13/17 History Levalbuterol Hfa Inhaler [Xopenex 1 puff INHALATION RT-Q6H PRN 05/12/17 History Hfa Inhaler] Menthol [Biofreeze] 1 applic TOPICAL Q6H PRN 05/12/17 05/13/17 History Morphine Sulfate [Ms Contin] 60 mg PO Q12HR 05/12/17 05/13/17 History Ondansetron HCl [Zofran] 8 mg PO Q8H PRN 05/12/17 05/13/17 History traZODone HCL [Desyrel] 100 mg PO HS 05/12/17 05/13/17 History Allergies Allergy/AdvReac Type Severity Reaction Status Date / Time amoxicillin Allergy Unknown Verified 05/13/17 06:54 baclofen Allergy Unknown Verified 05/13/17 06:54 diazepam [From Valium] Allergy Unknown Verified 05/13/17 06:54 eszopiclone [From Lunesta] Allergy Unknown Verified 05/13/17 06:54 gabapentin Allergy Unknown Verified 05/13/17 06:54 iodine Allergy Unknown Verified 05/13/17 06:54 latex Allergy Unknown Verified 05/13/17 06:54 lorazepam Allergy Unknown Verified 05/13/17 06:54 meperidine [From Demerol] Allergy Unknown Verified 05/13/17 06:54 nitrofurantoin Allergy Unknown Verified 05/13/17 06:54 Penicillins Allergy Unknown Verified 05/13/17 06:54 phenytoin [From Dilantin] Allergy Unknown Verified 05/13/17 06:54 quetiapine [From Seroquel] Allergy Unknown Verified 05/13/17 06:54 sulfamethoxazole Allergy Unknown Verified 05/13/17 06:54 [From Bactrim] tramadol Allergy Unknown Verified 05/13/17 06:54 trimethoprim [From Bactrim] Allergy Unknown Verified 05/13/17 06:54 chlorine Allergy Unknown Uncoded 05/13/17 01:45 loxagile acid Allergy Unknown Uncoded 05/13/17 01:45 loxaglate Allergy Unknown Uncoded 05/13/17 01:45 Physical Exam Vitals: Vital Signs Temp Pulse Resp BP Pulse Ox 05/13/17 10:00 97.8 F 97 16 116/84 97 05/13/17 09:31 97 18 116/84 96 05/13/17 07:53 88 18 127/71 96 05/13/17 05:33 90 18 125/69 94 L 05/13/17 03:18 104 H 134/84 98 05/13/17 01:40 97.8 F 98 22 137/91 100 Intake and Output 05/12/17 05/13/17 05/13/17 22:59 06:59 14:59 Intake Total 0 Balance 0 Intake: IV 0 Heparin Sod,Pork in 0.45% 0 NaCl 25,000 unit In 0.45 % NaCl 1 500ml.bag @ 10. 45 UNITS/KG/HR 20 mls/hr IV .Q24H FRANK Rx#: [id number] Intake, IV Titration 0 Amount Sodium Chloride 0.9% 1, 0 000 ml @ 100 mls/hr IV . Q10H STA Rx#:[id number] Other: Weight 95.708 kg Results 05/13/17 02:11 05/13/17 02:11 Cardiac Enzymes 05/13/17 05/13/17 05/13/17 Range/Units 02:11 02:11 07:43 AST 27 (14-36) U/L CK-MB (CK-2) 0.7 0.4 (0.0-2.4) ng/mL Troponin I <0.012 <0.012 (0.000-0.034) ng/mL Coagulation 05/13/17 Range/Units 02:11 PT 9.8 (9.0-12.0) sec APTT 20.4 L (22.0-30.0) sec CBC 05/13/17 Range/Units 02:11 WBC 18.0 H (3.8-10.6) k/uL RBC 4.55 (3.80-5.40) m/uL Hgb 12.2 (11.4-16.0) gm/dL Hct 38.7 (34.0-46.0) % Plt Count 394 (150-450) k/uL Comprehensive Metabolic Panel 05/13/17 Range/Units 02:11 Sodium 138 (137-145) mmol/L Potassium 4.4 (3.5-5.1) mmol/L Chloride 103 (98-107) mmol/L Carbon Dioxide 20 L (22-30) mmol/L BUN 3 L (7-17) mg/dL Creatinine 0.60 (0.52-1.04) mg/dL Glucose 217 H (74-99) mg/dL Calcium 10.2 (8.4-10.2) mg/dL AST 27 (14-36) U/L ALT 32 (9-52) U/L Alkaline Phosphatase 67 (38-126) U/L Total Protein 7.7 (6.3-8.2) g/dL Albumin 4.5 (3.5-5.0) g/dL Current Medications Generic Name Dose Route Start Last Admin Trade Name Freq PRN Reason Stop Dose Admin Acetaminophen 650 mg 05/13/17 08:53 05/13/17 09:13 Tylenol Tab PO 650 mg Q6HR PRN Administration Fever and/ or MILD Pain Alprazolam 0.5 mg 05/13/17 13:00 Xanax PO QID [facility] Aspirin 325 mg 05/14/17 09:00 Aspirin PO DAILY [facility] Atorvastatin Calcium 80 mg 05/13/17 09:00 05/13/17 09:12 Lipitor PO 80 mg DAILY FRANK Administration Carvedilol 6.25 mg 05/13/17 21:00 Coreg PO BID [facility] Heparin Sodium (Porcine) 0 unit 05/13/17 05:06 Heparin IV PER PROTOCOL PRN Low PTT Protocol Sodium Chloride 1,000 mls @ 100 mls/hr 05/13/17 02:34 05/13/17 06:36 Saline 0.9% IV 05/13/17 12:33 Not Given .Q10H STA Sodium Chloride 1,000 mls @ 100 mls/hr 05/13/17 03:45 05/13/17 06:37 Saline 0.9% IV 100 mls/hr .Q10H FRANK Administration Heparin Sodium/Sodium Chloride 500 mls @ 20 mls/hr 05/13/17 05:15 05/13/17 05 :35 25,000 unit/ Sodium Chloride IV 10.45 units/kg/hr .Q24H FRANK 20 mls/hr Protocol Administration 10.45 UNITS/KG/HR Metoprolol Tartrate 25 mg 05/13/17 09:00 05/13/17 09:13 Lopressor PO 25 mg BID [facility]ANK Administration Miscellaneous Information 1 each 05/13/17 02:34 Rx Info: Iv Contrast Was Given MISCELLANE 05/15/17 02:34 DAILY PRN Per Protocol Morphine Sulfate 4 mg 05/13/17 03:44 Morphine Sulfate IV Q5M PRN Chest Pain Morphine Sulfate 60 mg 05/13/17 21:00 Ms Contin PO Q12HR FRANK Nitroglycerin 0.4 mg 05/13/17 03:44 Nitrostat SUBLINGUAL Q5M PRN Chest Pain Non-Formulary Medication 1 applic 05/13/17 09:26 Menthol [Biofreeze] TOPICAL Q6H PRN Pain Pantoprazole Sodium 40 mg 05/13/17 09:00 05/13/17 09:09 Protonix IVP 40 mg DAILY [facility] Administration Trazodone HCl 100 mg 05/13/17 21:00 Desyrel PO HS [facility] Intake and Output 05/12/17 05/13/17 05/13/17 22:59 06:59 14:59 Intake Total 0 Balance 0 Intake: IV 0 Heparin Sod,Pork in 0.45% 0 NaCl 25,000 unit In 0.45 % NaCl 1 500ml.bag @ 10. 45 UNITS/KG/HR 20 mls/hr IV .Q24H FRANK Rx#: [id number] Intake, IV Titration 0 Amount Sodium Chloride 0.9% 1, 0 000 ml @ 100 mls/hr IV . Q10H STA Rx#:[id number] Other: Weight 95.708 kg 05/13/17 02:11 05/13/17 02:11
--- NOTE | 2017-05-13 10:43 | P.CRDCN ---
History of Present Illness Consult date: 05/13/17 History of present illness: Mrs. Velasco a 26-year-old female with past medical history significant for paroxysmal a-fib, asthma, fibromyalgia, sleep apnea, CVA, brain surgery, anxiety, depression and states she has had 4 heart attacks with no stents of cardiac catheterization performed. She follows with Dr. Qureshi out of [facility]. We have been asked to see her in consultation for complaints of chest pain. She states she was at Dr. Quinn's office for her routine monthly pain medication refill when she developed pain in her left chest described as pinching. The pain went into her left arm, neck and face. She also complaints of left facial numbness and tingling. She had associated shortness of breath, dizziness and palpitations. Although she states it feels different than her typical a-fib. The discomfort was intermittent and she is currently chest pain free at the time of my exam. She states she has seen many cardiologists in the last 10 years and has underwent a stress test, loop recorder implantation, holter monitors and event monitors. She has been told she has had 4 heart attacks baesd on her EKG but has never underwent coronary angiography. EKG shows sinus mechanism with ST depression in anterior leads. There is no old for comparison. Chest xray negative for an acute cardiopulmonary process. CTA negative for PE. Laboratory data reviewed, WBC 18, hgb 12.2, plt 394, potassium 4.4, magnesium 1.6, cardiac enzymes negative x3. Current cardiac medications include carvedilol 6.25 mg BID. Review of Systems At the time of my exam CONSTITUTIONAL: Denies fever. Denies chills. EYES: Denies blurred vision. Denies vision changes. Denies eye pain. EARS, NOSE, MOUTH & THROAT: Denies headache. Denies sore throat. Denies ear pain. CARDIOVASCULAR: Complains of reproducible muscular skeletal-type chest pain. Denies shortness of breath. Denies orthopnea. Denies PND. Denies palpitations. RESPIRATORY: Denies cough. GASTROINTESTINAL: Denies abdominal pain. Denies diarrhea. Denies constipation. Denies nausea. Denies vomiting. MUSCULOSKELETAL: Denies myalgias. INTEGUMENTARY: Denies pruitis. Denies rash. NEUROLOGIC: Denies numbness. Denies tingling. Denies weakness. PSYCHIATRIC: Denies anxiety. Denies depression. ENDOCRINE: Denies fatigue. Denies weight change. Denies polydipsia. Denies polyurina. GENITOURINARY: Denies burning, hematuria or urgency with micturation. HEMATOLOGIC: Denies history of anemia. Denies bleeding. Past Medical History Past Medical History: Atrial Fibrillation, Asthma, CVA/TIA, Eye Disorder, Fibromyalgia, Myocardial Infarction (AR), Pneumonia, Sleep Apnea/CPAP/BIPAP, Supraventricular Tachycardia (SVT) Additional Past Medical History / Comment(s): Pt states she is currently being treated for a sinus infection. Other HX: Pt states she has been told she has had at least 4 MIs determined by EKG (pt states she has never had a cardiac cath), pt states she has had multiple CVAs with L arm and L leg weakness as a residual, tachycardia, hypotension, PAUL-no device yet, nasal polypes, L eye limited vision, L eye strabismus with surgical correction, chronic back pain, scoliosis as a child (had surgery), bronchitis, hypoglycemia. Last Myocardial Infarction Date:: unkn History of Any Multi-Drug Resistant Organisms: MRSA Date of last positivie culture/infection: 2009 MDRO Source:: face Past Surgical History: Back Surgery, Cholecystectomy Additional Past Surgical History / Comment(s): Brain surgery for malformation, loop recorder, 2 back surgeries-rods since removed but pt states still has piece of a screw left. Past Anesthesia/Blood Transfusion Reactions: No Reported Reaction Smoking Status: Former smoker - Past Family History Mother Family Medical History: Respiratory Disorder Additional Family Medical History / Comment(s): Bronchitis, TB. Mother is . Medications and Allergies Home Medications Medication Instructions Recorded Confirmed Type ALPRAZolam [Xanax] 0.5 mg PO QID 05/12/17 05/13/17 History Beclomethasone Dipropionate [Qvar 2 puff INHALATION RT-BID 05/12/17 05/13/17 History 80 mcg] Carvedilol [Coreg] 6.25 mg PO BID 05/12/17 05/13/17 History Levalbuterol Hfa Inhaler [Xopenex 1 puff INHALATION RT-Q6H PRN 05/12/17 History Hfa Inhaler] Menthol [Biofreeze] 1 applic TOPICAL Q6H PRN 05/12/17 05/13/17 History Morphine Sulfate [Ms Contin] 60 mg PO Q12HR 05/12/17 05/13/17 History Ondansetron HCl [Zofran] 8 mg PO Q8H PRN 05/12/17 05/13/17 History traZODone HCL [Desyrel] 100 mg PO HS 05/12/17 05/13/17 History Allergies Allergy/AdvReac Type Severity Reaction Status Date / Time amoxicillin Allergy Unknown Verified 05/13/17 06:54 baclofen Allergy Unknown Verified 05/13/17 06:54 diazepam [From Valium] Allergy Unknown Verified 05/13/17 06:54 eszopiclone [From Lunesta] Allergy Unknown Verified 05/13/17 06:54 gabapentin Allergy Unknown Verified 05/13/17 06:54 iodine Allergy Unknown Verified 05/13/17 06:54 latex Allergy Unknown Verified 05/13/17 06:54 lorazepam Allergy Unknown Verified 05/13/17 06:54 meperidine [From Demerol] Allergy Unknown Verified 05/13/17 06:54 nitrofurantoin Allergy Unknown Verified 05/13/17 06:54 Penicillins Allergy Unknown Verified 05/13/17 06:54 phenytoin [From Dilantin] Allergy Unknown Verified 05/13/17 06:54 quetiapine [From Seroquel] Allergy Unknown Verified 05/13/17 06:54 sulfamethoxazole Allergy Unknown Verified 05/13/17 06:54 [From Bactrim] tramadol Allergy Unknown Verified 05/13/17 06:54 trimethoprim [From Bactrim] Allergy Unknown Verified 05/13/17 06:54 chlorine Allergy Unknown Uncoded 05/13/17 01:45 loxagile acid Allergy Unknown Uncoded 05/13/17 01:45 loxaglate Allergy Unknown Uncoded 05/13/17 01:45 Physical Exam Vitals: Vital Signs Temp Pulse Resp BP Pulse Ox 05/13/17 10:00 97.8 F 97 18 116/84 96 05/13/17 09:31 97 18 116/84 96 05/13/17 07:53 88 18 127/71 96 05/13/17 05:33 90 18 125/69 94 L 05/13/17 03:18 104 H 134/84 98 05/13/17 01:40 97.8 F 98 22 137/91 100 Intake and Output 05/12/17 05/13/17 05/13/17 22:59 06:59 14:59 Other: Weight 95.708 kg Blood pressure 116/84 heart rate of 97 GENERAL: This is a 26-year-old female in no apparent distress at the time of my examination. HEENT: Head is atraumatic, normocephalic. Pupils are equal, round. Sclerae anicteric. Conjunctivae are clear. Mucous membranes of the mouth are moist. Neck is supple. There is no jugular venous distention. No carotid bruit is heard. LUNGS: Clear to auscultation no wheezes, rales or rhonchi. No chest wall tenderness is noted on palpation or with deep breathing. HEART: Regular rate and rhythm without murmurs, rubs or gallops. S1 and S2 heard. ABDOMEN: Soft, nontender. Bowel sounds are heard. No organomegaly noted. EXTREMITIES: 2+ peripheral pulses with no evidence of peripheral edema and no calf tenderness noted. NEUROLOGIC: Patient is awake, alert and oriented x3. Results 05/13/17 02:11 05/13/17 02:11 Cardiac Enzymes 05/13/17 05/13/17 05/13/17 Range/Units 02:11 02:11 02:11 WBC 18.0 H (3.8-10.6) k/uL RBC 4.55 (3.80-5.40) m/uL Hgb 12.2 (11.4-16.0) gm/dL Hct 38.7 (34.0-46.0) % MCV 85.1 (80.0-100.0) fL MCH 26.9 (25.0-35.0) pg MCHC 31.6 (31.0-37.0) g/dL RDW 15.6 H (11.5-15.5) % Plt Count 394 (150-450) k/uL Neutrophils % 92 % Lymphocytes % 6 % Monocytes % 2 % Eosinophils % 1 % Basophils % 0 % Neutrophils # 16.5 H (1.3-7.7) k/uL Lymphocytes # 1.0 (1.0-4.8) k/uL Monocytes # 0.3 (0-1.0) k/uL Eosinophils # 0.1 (0-0.7) k/uL Basophils # 0.0 (0-0.2) k/uL PT (9.0-12.0) sec INR (<1.2) APTT (22.0-30.0) sec D-Dimer (<0.60) mg/L FEU Sodium 138 (137-145) mmol/L Potassium 4.4 (3.5-5.1) mmol/L Chloride 103 (98-107) mmol/L Carbon Dioxide 20 L (22-30) mmol/L Anion Gap 15 mmol/L BUN 3 L (7-17) mg/dL Creatinine 0.60 (0.52-1.04) mg/dL Est GFR (MDRD) Af Amer >60 (>60 ml/min/1.73 sqM) Est GFR (MDRD) Non-Af >60 (>60 ml/min/1.73 sqM) Glucose 217 H (74-99) mg/dL Calcium 10.2 (8.4-10.2) mg/dL Magnesium 1.6 (1.6-2.3) mg/dL Total Bilirubin 0.3 (0.2-1.3) mg/dL AST 27 (14-36) U/L ALT 32 (9-52) U/L Alkaline Phosphatase 67 (38-126) U/L Total Creatine Kinase 56 (30-135) U/L CK-MB (CK-2) 0.7 (0.0-2.4) ng/mL CK-MB (CK-2) Rel Index 1.3 Troponin I <0.012 (0.000-0.034) ng/mL C-Reactive Protein (<10.0) mg/L NT-Pro-B Natriuret Pep pg/mL Total Protein 7.7 (6.3-8.2) g/dL Albumin 4.5 (3.5-5.0) g/dL Lipase 34 (23-300) U/L HCG, Qual Urine Color Urine Appearance (Clear) Urine pH (5.0-8.0) Ur Specific Chrisman (1.001-1.035) Urine Protein (Negative) Urine Glucose (UA) (Negative) Urine Ketones (Negative) Urine Blood (Negative) Urine Nitrite (Negative) Urine Bilirubin (Negative) Urine Urobilinogen (<2.0) mg/dL Ur Leukocyte Esterase (Negative) Urine HCG, Qual (Not Detectd) Influenza Type A RNA (Not Detectd) Influenza Type B (PCR) (Not Detectd) 05/13/17 05/13/17 05/13/17 Range/Units 02:11 02:11 02:52 WBC (3.8-10.6) k/uL RBC (3.80-5.40) m/uL Hgb (11.4-16.0) gm/dL Hct (34.0-46.0) % MCV (80.0-100.0) fL MCH (25.0-35.0) pg MCHC (31.0-37.0) g/dL RDW (11.5-15.5) % Plt Count (150-450) k/uL Neutrophils % % Lymphocytes % % Monocytes % % Eosinophils % % Basophils % % Neutrophils # (1.3-7.7) k/uL Lymphocytes # (1.0-4.8) k/uL Monocytes # (0-1.0) k/uL Eosinophils # (0-0.7) k/uL Basophils # (0-0.2) k/uL PT 9.8 (9.0-12.0) sec INR 1.0 (<1.2) APTT 20.4 L (22.0-30.0) sec D-Dimer 0.58 (<0.60) mg/L FEU Sodium (137-145) mmol/L Potassium (3.5-5.1) mmol/L Chloride (98-107) mmol/L Carbon Dioxide (22-30) mmol/L Anion Gap mmol/L BUN (7-17) mg/dL Creatinine (0.52-1.04) mg/dL Est GFR (MDRD) Af Amer (>60 ml/min/1.73 sqM) Est GFR (MDRD) Non-Af (>60 ml/min/1.73 sqM) Glucose (74-99) mg/dL Calcium (8.4-10.2) mg/dL Magnesium (1.6-2.3) mg/dL Total Bilirubin (0.2-1.3) mg/dL AST (14-36) U/L ALT (9-52) U/L Alkaline Phosphatase (38-126) U/L Total Creatine Kinase (30-135) U/L CK-MB (CK-2) (0.0-2.4) ng/mL CK-MB (CK-2) Rel Index Troponin I (0.000-0.034) ng/mL C-Reactive Protein (<10.0) mg/L NT-Pro-B Natriuret Pep 97 pg/mL Total Protein (6.3-8.2) g/dL Albumin (3.5-5.0) g/dL Lipase (23-300) U/L HCG, Qual Urine Color Colorless Urine Appearance Clear (Clear) Urine pH 5.5 (5.0-8.0) Ur Specific Chrisman 1.002 (1.001-1.035) Urine Protein Negative (Negative) Urine Glucose (UA) 2+ H (Negative) Urine Ketones Negative (Negative) Urine Blood Negative (Negative) Urine Nitrite Negative (Negative) Urine Bilirubin Negative (Negative) Urine Urobilinogen <2.0 (<2.0) mg/dL Ur Leukocyte Esterase Negative (Negative) Urine HCG, Qual (Not Detectd) Influenza Type A RNA (Not Detectd) Influenza Type B (PCR) (Not Detectd) 05/13/17 05/13/17 05/13/17 Range/Units 02:52 02:52 04:32 WBC (3.8-10.6) k/uL RBC (3.80-5.40) m/uL Hgb (11.4-16.0) gm/dL Hct (34.0-46.0) % MCV (80.0-100.0) fL MCH (25.0-35.0) pg MCHC (31.0-37.0) g/dL RDW (11.5-15.5) % Plt Count (150-450) k/uL Neutrophils % % Lymphocytes % % Monocytes % % Eosinophils % % Basophils % % Neutrophils # (1.3-7.7) k/uL Lymphocytes # (1.0-4.8) k/uL Monocytes # (0-1.0) k/uL Eosinophils # (0-0.7) k/uL Basophils # (0-0.2) k/uL PT (9.0-12.0) sec INR (<1.2) APTT (22.0-30.0) sec D-Dimer (<0.60) mg/L FEU Sodium (137-145) mmol/L Potassium (3.5-5.1) mmol/L Chloride (98-107) mmol/L Carbon Dioxide (22-30) mmol/L Anion Gap mmol/L BUN (7-17) mg/dL Creatinine (0.52-1.04) mg/dL Est GFR (MDRD) Af Amer (>60 ml/min/1.73 sqM) Est GFR (MDRD) Non-Af (>60 ml/min/1.73 sqM) Glucose (74-99) mg/dL Calcium (8.4-10.2) mg/dL Magnesium (1.6-2.3) mg/dL Total Bilirubin (0.2-1.3) mg/dL AST (14-36) U/L ALT (9-52) U/L Alkaline Phosphatase (38-126) U/L Total Creatine Kinase (30-135) U/L CK-MB (CK-2) (0.0-2.4) ng/mL CK-MB (CK-2) Rel Index Troponin I (0.000-0.034) ng/mL C-Reactive Protein (<10.0) mg/L NT-Pro-B Natriuret Pep pg/mL Total Protein (6.3-8.2) g/dL Albumin (3.5-5.0) g/dL Lipase (23-300) U/L HCG, Qual Not Detected Urine Color Urine Appearance (Clear) Urine pH (5.0-8.0) Ur Specific Chrisman (1.001-1.035) Urine Protein (Negative) Urine Glucose (UA) (Negative) Urine Ketones (Negative) Urine Blood (Negative) Urine Nitrite (Negative) Urine Bilirubin (Negative) Urine Urobilinogen (<2.0) mg/dL Ur Leukocyte Esterase (Negative) Urine HCG, Qual Not Detected (Not Detectd) Influenza Type A RNA Not Detected (Not Detectd) Influenza Type B (PCR) Not Detected (Not Detectd) 05/13/17 05/13/17 Range/Units 07:43 07:43 WBC (3.8-10.6) k/uL RBC (3.80-5.40) m/uL Hgb (11.4-16.0) gm/dL Hct (34.0-46.0) % MCV (80.0-100.0) fL MCH (25.0-35.0) pg MCHC (31.0-37.0) g/dL RDW (11.5-15.5) % Plt Count (150-450) k/uL Neutrophils % % Lymphocytes % % Monocytes % % Eosinophils % % Basophils % % Neutrophils # (1.3-7.7) k/uL Lymphocytes # (1.0-4.8) k/uL Monocytes # (0-1.0) k/uL Eosinophils # (0-0.7) k/uL Basophils # (0-0.2) k/uL PT (9.0-12.0) sec INR (<1.2) APTT (22.0-30.0) sec D-Dimer (<0.60) mg/L FEU Sodium (137-145) mmol/L Potassium (3.5-5.1) mmol/L Chloride (98-107) mmol/L Carbon Dioxide (22-30) mmol/L Anion Gap mmol/L BUN (7-17) mg/dL Creatinine (0.52-1.04) mg/dL Est GFR (MDRD) Af Amer (>60 ml/min/1.73 sqM) Est GFR (MDRD) Non-Af (>60 ml/min/1.73 sqM) Glucose (74-99) mg/dL Calcium (8.4-10.2) mg/dL Magnesium (1.6-2.3) mg/dL Total Bilirubin (0.2-1.3) mg/dL AST (14-36) U/L ALT (9-52) U/L Alkaline Phosphatase (38-126) U/L Total Creatine Kinase 39 (30-135) U/L CK-MB (CK-2) 0.4 (0.0-2.4) ng/mL CK-MB (CK-2) Rel Index 1.0 Troponin I <0.012 (0.000-0.034) ng/mL C-Reactive Protein 8.0 (<10.0) mg/L NT-Pro-B Natriuret Pep pg/mL Total Protein (6.3-8.2) g/dL Albumin (3.5-5.0) g/dL Lipase (23-300) U/L HCG, Qual Urine Color Urine Appearance (Clear) Urine pH (5.0-8.0) Ur Specific Chrisman (1.001-1.035) Urine Protein (Negative) Urine Glucose (UA) (Negative) Urine Ketones (Negative) Urine Blood (Negative) Urine Nitrite (Negative) Urine Bilirubin (Negative) Urine Urobilinogen (<2.0) mg/dL Ur Leukocyte Esterase (Negative) Urine HCG, Qual (Not Detectd) Influenza Type A RNA (Not Detectd) Influenza Type B (PCR) (Not Detectd) Coagulation 05/13/17 Range/Units 02:11 PT 9.8 (9.0-12.0) sec APTT 20.4 L (22.0-30.0) sec CBC 05/13/17 Range/Units 02:11 WBC 18.0 H (3.8-10.6) k/uL RBC 4.55 (3.80-5.40) m/uL Hgb 12.2 (11.4-16.0) gm/dL Hct 38.7 (34.0-46.0) % Plt Count 394 (150-450) k/uL Comprehensive Metabolic Panel 05/13/17 Range/Units 02:11 Sodium 138 (137-145) mmol/L Potassium 4.4 (3.5-5.1) mmol/L Chloride 103 (98-107) mmol/L Carbon Dioxide 20 L (22-30) mmol/L BUN 3 L (7-17) mg/dL Creatinine 0.60 (0.52-1.04) mg/dL Glucose 217 H (74-99) mg/dL Calcium 10.2 (8.4-10.2) mg/dL AST 27 (14-36) U/L ALT 32 (9-52) U/L Alkaline Phosphatase 67 (38-126) U/L Total Protein 7.7 (6.3-8.2) g/dL Albumin 4.5 (3.5-5.0) g/dL Current Medications Generic Name Dose Route Start Last Admin Trade Name Freq PRN Reason Stop Dose Admin Acetaminophen 650 mg 05/13/17 08:53 05/13/17 09:13 Tylenol Tab PO 650 mg Q6HR PRN Administration Fever and/ or MILD Pain Alprazolam 0.5 mg 05/13/17 13:00 Xanax PO QID [facility] Aspirin 325 mg 05/14/17 09:00 Aspirin PO DAILY [facility] Atorvastatin Calcium 80 mg 05/13/17 09:00 05/13/17 09:12 Lipitor PO 80 mg DAILY [facility] Administration Carvedilol 6.25 mg 05/13/17 21:00 Coreg PO BID [facility] Heparin Sodium (Porcine) 0 unit 05/13/17 05:06 Heparin IV PER PROTOCOL PRN Low PTT Protocol Sodium Chloride 1,000 mls @ 100 mls/hr 05/13/17 02:34 05/13/17 06:36 Saline 0.9% IV 05/13/17 12:33 Not Given .Q10H STA Sodium Chloride 1,000 mls @ 100 mls/hr 05/13/17 03:45 05/13/17 06:37 Saline 0.9% IV 100 mls/hr .Q10H FRANK Administration Heparin Sodium/Sodium Chloride 500 mls @ 20 mls/hr 05/13/17 05:15 05/13/17 05 :35 25,000 unit/ Sodium Chloride IV 10.45 units/kg/hr .Q24H FRANK 20 mls/hr Protocol Administration 10.45 UNITS/KG/HR Metoprolol Tartrate 25 mg 05/13/17 09:00 05/13/17 09:13 Lopressor PO 25 mg BID [facility] Administration Miscellaneous Information 1 each 05/13/17 02:34 Rx Info: Iv Contrast Was Given MISCELLANE 05/15/17 02:34 DAILY PRN Per Protocol Morphine Sulfate 4 mg 05/13/17 03:44 Morphine Sulfate IV Q5M PRN Chest Pain Morphine Sulfate 60 mg 05/13/17 21:00 Ms Contin PO Q12HR [facility] Nitroglycerin 0.4 mg 05/13/17 03:44 Nitrostat SUBLINGUAL Q5M PRN Chest Pain Non-Formulary Medication 1 applic 05/13/17 09:26 Menthol [Biofreeze] TOPICAL Q6H PRN Pain Pantoprazole Sodium 40 mg 05/13/17 09:00 05/13/17 09:09 Protonix IVP 40 mg DAILY [facility] Administration Trazodone HCl 100 mg 05/13/17 21:00 Desyrel PO HS [facility] Intake and Output 05/12/17 05/13/17 05/13/17 22:59 06:59 14:59 Other: Weight 95.708 kg 05/13/17 02:11 05/13/17 02:11 Assessment and Plan Assessment: ASSESSMENT 1. Chest pain, atypical negative cardiac enzymes and abnormal EKG with no old for comparison. 2. Paroxysmal atrial fibrillation, loop recorder in place 3. Obesity PLAN Discontinue heparin infusion. Obtain 2-D echocardiogram and Doppler study to assess cardiac structure and function. Perform dobutamine stress echocardiogram to evaluate for stress-induced ischemia. Nurse Practitioner note has been reviewed, I agree with a documented findings and plan of care. Patient was seen and examined.
[2017-05-13] MEDS ORDERED: ATROPINE SULFATE 0.1 MG/ML 10ML SYRINGE ONE (11:55)
[2017-05-13] MEDS ORDERED: MORPHINE SULFATE ER 60 MG TABLET PO ONE (13:00)
[2017-05-13 13:26] LABS: Creatine Kinase 36 U/L (30-135)
[2017-05-13 13:39] LABS: Creatine Kinase MB 0.5 ng/mL (0.0-2.4); Troponin I <0.012 ng/mL (0.000-0.034)
[2017-05-13] MEDS: ALPRAZolam 0.5 MG TAB PO SCH ×2 (16:48→18:05)
[2017-05-13] MEDS ORDERED: CARVEDILOL 6.25 MG TAB PO SCH (17:30)
[2017-05-13 18:35] VITALS: BP 121/68; PULSE 88; RESP 18; TEMP 97.6
[2017-05-13 18:36] LABS: Appearance,Urine Clear (Clear); Bilirubin,Urine Negative (Negative); Blood,Urine Negative (Negative); Color,Urine Colorless; Glucose,Urine (UA) Negative (Negative); Ketones,Urine Negative (Negative); Leukocyte Esterase,Urine Negative (Negative); Nitrite,Urine Negative (Negative); PH, Urine 6.5 (5.0-8.0); Protein,Urine Negative (Negative); Specific Gravity,Urine 1.004 (1.001-1.035); Urobilinogen,Urine <2.0 mg/dL (<2.0)
--- NOTE | 2017-05-13 19:03 | ECHOS ---
STRESS ECHOCARDIOGRAM DOBUTAMINE STRESS ECHO: INDICATIONS: History of chest pain. MEDICATIONS: BASELINE HEART RATE: 95 BASELINE BLOOD PRESSURE: 141/81 MAXIMUM HEART RATE: 163 MAXIMUM BLOOD PRESSURE: 188/96 85% MPHR: 163 100% MPHR: 192 METS: MAXIMUM STAGE REACHED: 5 mcg/kg per minute. TOTAL EXERCISE TIME: 14:15 CLINICAL INFORMATION: Baseline heart rate 95 beats per minute. Baseline blood pressure 141/81 mmHg. Patient received dobutamine infusion per protocol. Atropine was also given. Peak heart rate achieved 163 beats per minute. Normal blood pressure response to dobutamine infusion. There was no ECG evidence for ischemia. The baseline 12-lead ECG showed normal sinus sinus rhythm with ST depression in the anterior precordial leads. With dobutamine infusion there was no ECG evidence for ischemia. PACs with an aberrant conduction were noted. No sustained arrhythmias noted. The dobutamine stress echo images revealed normal LV size and systolic function without any wall motion abnormalities at baseline. There was a stepwise increment in overall LV contractility without development of any wall motion abnormalities during dobutamine infusion and atropine infusion. At recovery, regional global LV systolic function remained normal. IMPRESSION: No ECG or echocardiographic evidence for ischemia. PACs noted but no sustained arrhythmias noted. MMODL / IJN: [id number] /
--- NOTE | 2017-05-13 19:52 | P.CNNES ---
History of Present Illness Consult date: 05/13/17 Reason for Consult: Patient being evaluated for TIA. History of Present Illness: This patient is a 26-year-old right-handed white female who presented to the emergency room today with symptoms of chest pain and numbness. Patient apparently had come in earlier to the ER and left to go home with similar symptoms of chest pain. She returned as she felt the chest pain did not improve and worsen. Patient has an extensive past medical history including history of Arnold-Chiari malformation with decompressive surgery done in 2016 at [facility]. She also has a history of having suffered for myocardial infarctions. She was examined in the ER after she was seen at her pain management physicians office and was noted to have chest pain and facial numbness. As noted she was seen in the ER and then came back due to worsening symptoms. The patient noted that she did have some left-sided facial droop. This was documented in the ER by Dr. Oliver at about 5:01 AM this morning. She was noted to have only left facial droop. Her NIH stroke scale was 1 and she was not a candidate for TPA secondary to low neuro deficits. Patient continued to complain of anterior chest wall pain and discomfort. She was seen by cardiology for evaluation of atypical chest pain and known history of atrial fibrillation. Patient states she was on Plavix and aspirin but had to discontinue these blood thinners to undergo surgery. She has not been back on either medication. Patient states that she had a similar episode of left-sided facial numbness a few days prior to hospitalization. Since admission to the hospital she has shown no further recurrence of facial droop or perioral numbness. She denies any focal motor weakness at this time. The patient was seen by cardiology earlier today. She underwent a stress test results of which are still pending. 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 We are waiting further conditions from cardiology. Patient states that she is not sure why she was not placed back on at least one baby aspirin for secondary stroke prevention. She also denies having had recent carotid Doppler study done. Her clinical history at this time suggest right hemispheric TIA. We will obtain a carotid Doppler ultrasound and suggest one baby aspirin for secondary stroke prevention. Her overall condition at this time remains guarded. Neurology is now been consulted for further evaluation and recommendations. Review of Systems Constitutional: Denies chills, Denies fever Eyes: denies blurred vision, denies pain Ears, nose, mouth and throat: Denies headache, Denies sore throat Cardiovascular: Denies chest pain, Denies shortness of breath Respiratory: Denies cough Gastrointestinal: Denies abdominal pain, Denies diarrhea, Denies nausea, Denies vomiting Genitourinary: Denies dysuria, Denies hematuria Musculoskeletal: Denies myalgias Integumentary: Denies pruritus, Denies rash Neurological: Reports paresthesias, Reports tingling, Denies numbness, Denies weakness Psychiatric: Denies anxiety, Denies depression Endocrine: Denies fatigue, Denies weight change Past Medical History Past Medical History: Atrial Fibrillation, Asthma, CVA/TIA, Eye Disorder, Fibromyalgia, Myocardial Infarction ([place]), Pneumonia, Sleep Apnea/CPAP/BIPAP, Supraventricular Tachycardia (SVT) Additional Past Medical History / Comment(s): Pt states she is currently being treated for a sinus infection. Other HX: Pt states she has been told she has had at least 4 MIs determined by EKG (pt states she has never had a cardiac cath), pt states she has had multiple CVAs with L arm and L leg weakness as a residual, tachycardia, hypotension, PAUL-no device yet, nasal polypes, L eye limited vision, L eye strabismus with surgical correction, chronic back pain, scoliosis as a child (had surgery), bronchitis, hypoglycemia. Last Myocardial Infarction Date:: unkn History of Any Multi-Drug Resistant Organisms: MRSA Date of last positivie culture/infection: 2009 MDRO Source:: face Past Surgical History: Back Surgery, Cholecystectomy Additional Past Surgical History / Comment(s): Brain surgery for malformation, loop recorder, 2 back surgeries-rods since removed but pt states still has piece of a screw left. Past Anesthesia/Blood Transfusion Reactions: No Reported Reaction Smoking Status: Former smoker - Past Family History Mother Family Medical History: Respiratory Disorder Additional Family Medical History / Comment(s): Bronchitis, TB. Mother is . Medications and Allergies Home Medications Medication Instructions Recorded Confirmed Type ALPRAZolam [Xanax] 0.5 mg PO QID 05/12/17 05/13/17 History Beclomethasone Dipropionate [Qvar 2 puff INHALATION RT-BID 05/12/17 05/13/17 History 80 mcg] Carvedilol [Coreg] 6.25 mg PO BID 05/12/17 05/13/17 History Levalbuterol Hfa Inhaler [Xopenex 1 puff INHALATION RT-Q6H PRN 05/12/17 History Hfa Inhaler] Menthol [Biofreeze] 1 applic TOPICAL Q6H PRN 05/12/17 05/13/17 History Morphine Sulfate [Ms Contin] 60 mg PO Q12HR 05/12/17 05/13/17 History Ondansetron HCl [Zofran] 8 mg PO Q8H PRN 05/12/17 05/13/17 History traZODone HCL [Desyrel] 100 mg PO HS 05/12/17 05/13/17 History Allergies Allergy/AdvReac Type Severity Reaction Status Date / Time amoxicillin Allergy Unknown Verified 05/13/17 06:54 baclofen Allergy Unknown Verified 05/13/17 06:54 diazepam [From Valium] Allergy Unknown Verified 05/13/17 06:54 eszopiclone [From Lunesta] Allergy Unknown Verified 05/13/17 06:54 gabapentin Allergy Unknown Verified 05/13/17 06:54 iodine Allergy Unknown Verified 05/13/17 06:54 latex Allergy Unknown Verified 05/13/17 06:54 lorazepam Allergy Unknown Verified 05/13/17 06:54 meperidine [From Demerol] Allergy Unknown Verified 05/13/17 06:54 nitrofurantoin Allergy Unknown Verified 05/13/17 06:54 Penicillins Allergy Unknown Verified 05/13/17 06:54 phenytoin [From Dilantin] Allergy Unknown Verified 05/13/17 06:54 quetiapine [From Seroquel] Allergy Unknown Verified 05/13/17 06:54 sulfamethoxazole Allergy Unknown Verified 05/13/17 06:54 [From Bactrim] tramadol Allergy Unknown Verified 05/13/17 06:54 trimethoprim [From Bactrim] Allergy Unknown Verified 05/13/17 06:54 chlorine Allergy Unknown Uncoded 05/13/17 01:45 loxagile acid Allergy Unknown Uncoded 05/13/17 01:45 loxaglate Allergy Unknown Uncoded 05/13/17 01:45 Physical Examination - Vital Signs Vital Signs: Vital Signs Temp Pulse Pulse Resp BP BP Pulse Ox 05/13/17 16:00 97.6 F 88 18 121/68 99 05/13/17 13:59 74 16 114/72 97 05/13/17 12:52 89 16 113/73 97 05/13/17 10:00 97.8 F 97 91 16 116/84 93 L 05/13/17 09:31 97 18 116/84 96 05/13/17 07:53 88 18 127/71 96 05/13/17 05:33 90 18 125/69 94 L 05/13/17 03:18 104 H 134/84 98 05/13/17 01:40 97.8 F 98 22 137/91 100 Intake and Output 05/13/17 05/13/17 05/13/17 06:59 14:59 22:59 Intake Total 160 844 Balance 160 844 Intake: IV 80 100 Heparin Sod,Pork in 0.45% 80 100 NaCl 25,000 unit In 0.45 % NaCl 1 500ml.bag @ 10. 45 UNITS/KG/HR 20 mls/hr IV .Q24H FRANK Rx#: [id number] Intake, IV Titration 80 Amount Heparin Sod,Pork in 0.45% 80 NaCl 25,000 unit In 0.45 % NaCl 1 500ml.bag @ 10. 45 UNITS/KG/HR 20 mls/hr IV .Q24H FRANK Rx#: [id number] Sodium Chloride 0.9% 1, 0 000 ml @ 100 mls/hr IV . Q10H STA Rx#:[id number] Oral 744 Other: # Voids 1 2 Weight 95.708 kg - Constitutional General appearance: average body habitus, cooperative - EENT EENT: PERRL, mucous membranes moist - Respiratory Respiratory: lungs clear, normal breath sounds - Cardiovascular Cardiovascular: regular rate, normal S1, normal S2 Extremities: no peripheral edema bilaterally - Gastrointestinal Gastrointestinal: normoactive bowel sounds - Integumentary Integumentary: normal - Neurologic Cranial nerve examination: PERRL, EOMI, VFF, V1/V2/V3 grossly intact, face symmetric, tongue midline, intact gag reflex, intact corneal reflex, normal palatal elevation Speech examination: intact Sensorimotor examination: intact Motor examination - right side: 4/5: biceps, triceps, wrist flexion, wrist extension, director park, hip flexors, knee extensors, dorsiflexion, toe extension (EHL) , plantarflexion Motor examination - left side: 4/5: biceps, triceps, wrist flexion, wrist extension, director park, hip flexors, knee extensors, dorsiflexion, toe extension (EHL) , plantarflexion Detailed sensory examination: intact Reflex and gait examination: intact Reflexes: 1+: ankle, bicep, knee, tricep - Musculoskeletal Musculoskeletal: no pain - Psychiatric Psychiatric: mood/affect appropriate, cooperative Results - Laboratory Findings CBC and BMP: 05/13/17 02:11 05/13/17 02:11 Abnormal Lab Findings: Abnormal Labs 05/13/17 05/13/17 05/13/17 02:11 02:11 02:11 WBC 18.0 H RDW 15.6 H Neutrophils # 16.5 H APTT 20.4 L Carbon Dioxide 20 L BUN 3 L Glucose 217 H Urine Glucose (UA) 05/13/17 02:52 WBC RDW Neutrophils # APTT Carbon Dioxide BUN Glucose Urine Glucose (UA) 2+ H Assessment and Plan (1) TIA (transient ischemic attack) Current Visit: Yes Status: Acute Code(s): G45.9 - TRANSIENT CEREBRAL ISCHEMIC ATTACK, UNSPECIFIED SNOMED Code(s): 871415973 (2) Chest pain Current Visit: Yes Status: Acute Code(s): R07.9 - CHEST PAIN, UNSPECIFIED SNOMED Code(s): 39773952 (3) Arnold-Chiari malformation Current Visit: Yes Status: Acute Code(s): Q07.00 - ARNOLD-CHIARI SYNDROME WITHOUT SPINA BIFIDA OR HYDROCEPHALUS SNOMED Code(s): 025232550 (4) Atrial fibrillation Current Visit: Yes Status: Acute Code(s): I48.91 - UNSPECIFIED ATRIAL FIBRILLATION SNOMED Code(s): 90190918 Plan: This patient is a 26-year-old female who was admitted to hospital with episode of numbness and left-sided facial droop. Symptoms resolved after she returned to the emergency room for worsening chest pain symptoms. She has a history of having undergone a Arnold-Chiari malformation decompression surgery in 2016 at [facility] with Dr. Herr. She follows closely with the pain specialist locally. She had an episode of acute chest pain which brought her initially to the ER. She was subsequent admitted to Hospital. She underwent a computed tomography scan of the brain which revealed evidence of suboccipital craniotomy site with no acute intracranial process identified. Patient's neurological examination at this time is nonfocal. She states she did have a short episode of left-sided facial droop. Her neurological exam at this time is nonfocal. Clinical history suggests possibility of right hemispheric TIA. We will await further recommendations from cardiology as well regarding her chest pain symptoms. Would recommend to consider placing this patient on 81 mg aspirin daily for secondary stroke prevention. Overall prognosis at this time remains guarded. Time with Patient: Greater than 30
[2017-05-13] MEDS ORDERED: MORPHINE SULFATE ER 60 MG TABLET PO SCH (21:00)
[2017-05-13] MEDS ORDERED: traZODone HCL 100 MG TAB PO SCH (21:00)
--- NOTE | 2017-05-13 21:10 | P.HPIM ---
History of Present Illness H&P Date: 05/13/17 Chief Complaint: Chest pain HISTORY OF PRESENT ILLNESS: 26-year-old female who presented with complaints of chest pain, this H&P was unable to be completed because the patient had some pending legal action and that required her attention and made the decision to leave AGAINST MEDICAL ADVICE before the H&P was able to be completed and the patient therefore was not seen by either Lynn Cole OFFENDER JOB RETENTION SPECIALIST, or Dr Zelaelm Woods MD prior to her leaving. REVIEW OF SYSTEMS GEN.: [ Tired] EYES: [None] HEENT: [None] NECK: [None] RESPIRATORY: [Some shortness of breath] CARDIOVASCULAR: [Chest pain yesterday] GASTROINTESTINAL: [None] GENITOURINARY: [None] MUSCULOSKELETAL: [Back pain] LYMPHATICS: [None] HEMATOLOGICAL: [None] PSYCHIATRY: [None] NEUROLOGICAL: [None] PAST MEDICAL HISTORY Past medical history: Past surgical history: Past psychological history: SOCIAL HISTORY: Additional psychological/social history: Smoking use history: Alcohol use history: Drug use history: Marital status: Living situation: Work history: FAMILY HISTORY: Father: Mother: ALLERGIES: HOME MEDICATION: VITAL SIGNS: [Reviewed. BMI noted] GENERAL: [Average built, sitting up, comfortable]. EYES: [Pupils equal. Conjunctiva sayra]l. HEENT: [External appearance of nose and ears normal, oral cavity grossly normal] . NECK: [JVD not raised; masses not palpable]. HEART: [First and second heart sounds are normal; no edema]. LUNGS:[ Respiratory rate normal; clear to auscultation]. ABDOMEN: [Soft, nontender, liver spleen not palpable, no masses palpable]. LYMPHATICS: [No lymph nodes palpable in the axilla and neck]. PSYCH: [Alert and oriented x3; mood and affect sayra]l. NEUROLOGICAL: [Cranial nerves grossly intact; no facial asymmetry, power and sensation grossly intact]. INVESTIGATIONS: ASSESSMENT: PLAN: OFFENDER JOB RETENTION SPECIALIST STATEMENT: Patient was seen and examined by nurse practitioner Lynn Cole and all elements of the case were discussed with attending Dr. Weaver. Past Medical History Past Medical History: Atrial Fibrillation, Asthma, CVA/TIA, Eye Disorder, Fibromyalgia, Myocardial Infarction ([place]), Pneumonia, Sleep Apnea/CPAP/BIPAP, Supraventricular Tachycardia (SVT) Additional Past Medical History / Comment(s): Pt states she is currently being treated for a sinus infection. Other HX: Pt states she has been told she has had at least 4 MIs determined by EKG (pt states she has never had a cardiac cath), pt states she has had multiple CVAs with L arm and L leg weakness as a residual, tachycardia, hypotension, PAUL-no device yet, nasal polypes, L eye limited vision, L eye strabismus with surgical correction, chronic back pain, scoliosis as a child (had surgery), bronchitis, hypoglycemia. Last Myocardial Infarction Date:: unkn History of Any Multi-Drug Resistant Organisms: MRSA Date of last positivie culture/infection: 2009 MDRO Source:: face Past Surgical History: Back Surgery, Cholecystectomy Additional Past Surgical History / Comment(s): Brain surgery for malformation, loop recorder, 2 back surgeries-rods since removed but pt states still has piece of a screw left. Past Anesthesia/Blood Transfusion Reactions: No Reported Reaction Smoking Status: Former smoker - Past Family History Mother Family Medical History: Respiratory Disorder Additional Family Medical History / Comment(s): Bronchitis, TB. Mother is . Medications and Allergies Home Medications Medication Instructions Recorded Confirmed Type ALPRAZolam [Xanax] 0.5 mg PO QID 05/12/17 05/13/17 History Beclomethasone Dipropionate [Qvar 2 puff INHALATION RT-BID 05/12/17 05/13/17 History 80 mcg] Carvedilol [Coreg] 6.25 mg PO BID 05/12/17 05/13/17 History Levalbuterol Hfa Inhaler [Xopenex 1 puff INHALATION RT-Q6H PRN 05/12/17 History Hfa Inhaler] Menthol [Biofreeze] 1 applic TOPICAL Q6H PRN 05/12/17 05/13/17 History Morphine Sulfate [Ms Contin] 60 mg PO Q12HR 05/12/17 05/13/17 History Ondansetron HCl [Zofran] 8 mg PO Q8H PRN 05/12/17 05/13/17 History traZODone HCL [Desyrel] 100 mg PO HS 05/12/17 05/13/17 History Allergies Allergy/AdvReac Type Severity Reaction Status Date / Time amoxicillin Allergy Unknown Verified 05/13/17 06:54 baclofen Allergy Unknown Verified 05/13/17 06:54 diazepam [From Valium] Allergy Unknown Verified 05/13/17 06:54 eszopiclone [From Lunesta] Allergy Unknown Verified 05/13/17 06:54 gabapentin Allergy Unknown Verified 05/13/17 06:54 iodine Allergy Unknown Verified 05/13/17 06:54 latex Allergy Unknown Verified 05/13/17 06:54 lorazepam Allergy Unknown Verified 05/13/17 06:54 meperidine [From Demerol] Allergy Unknown Verified 05/13/17 06:54 nitrofurantoin Allergy Unknown Verified 05/13/17 06:54 Penicillins Allergy Unknown Verified 05/13/17 06:54 phenytoin [From Dilantin] Allergy Unknown Verified 05/13/17 06:54 quetiapine [From Seroquel] Allergy Unknown Verified 05/13/17 06:54 sulfamethoxazole Allergy Unknown Verified 05/13/17 06:54 [From Bactrim] tramadol Allergy Unknown Verified 05/13/17 06:54 trimethoprim [From Bactrim] Allergy Unknown Verified 05/13/17 06:54 chlorine Allergy Unknown Uncoded 05/13/17 01:45 loxagile acid Allergy Unknown Uncoded 05/13/17 01:45 loxaglate Allergy Unknown Uncoded 05/13/17 01:45 Physical Exam Vitals: Vital Signs Temp Pulse Pulse Resp BP BP Pulse Ox 05/13/17 16:00 97.6 F 88 18 121/68 99 05/13/17 13:59 74 16 114/72 97 05/13/17 12:52 89 16 113/73 97 05/13/17 10:00 97.8 F 97 91 16 116/84 93 L 05/13/17 09:31 97 18 116/84 96 05/13/17 07:53 88 18 127/71 96 05/13/17 05:33 90 18 125/69 94 L 05/13/17 03:18 104 H 134/84 98 05/13/17 01:40 97.8 F 98 22 137/91 100 Intake and Output 05/13/17 05/13/17 05/13/17 06:59 14:59 22:59 Intake Total 160 844 Balance 160 844 Intake: IV 80 100 Heparin Sod,Pork in 0.45% 80 100 NaCl 25,000 unit In 0.45 % NaCl 1 500ml.bag @ 10. 45 UNITS/KG/HR 20 mls/hr IV .Q24H FRANK Rx#: [id number] Intake, IV Titration 80 Amount Heparin Sod,Pork in 0.45% 80 NaCl 25,000 unit In 0.45 % NaCl 1 500ml.bag @ 10. 45 UNITS/KG/HR 20 mls/hr IV .Q24H FRANK Rx#: [id number] Sodium Chloride 0.9% 1, 0 000 ml @ 100 mls/hr IV . Q10H STA Rx#:[id number] Oral 744 Other: # Voids 1 2 Weight 95.708 kg Results CBC & Chem 7: 05/13/17 02:11 05/13/17 02:11 Labs: Abnormal Lab Results - Last 24 Hours (Table) 05/13/17 05/13/17 05/13/17 Range/Units 02:11 02:11 02:11 WBC 18.0 H (3.8-10.6) k/uL RDW 15.6 H (11.5-15.5) % Neutrophils # 16.5 H (1.3-7.7) k/uL APTT 20.4 L (22.0-30.0) sec Carbon Dioxide 20 L (22-30) mmol/L BUN 3 L (7-17) mg/dL Glucose 217 H (74-99) mg/dL Urine Glucose (UA) (Negative) 05/13/17 Range/Units 02:52 WBC (3.8-10.6) k/uL RDW (11.5-15.5) % Neutrophils # (1.3-7.7) k/uL APTT (22.0-30.0) sec Carbon Dioxide (22-30) mmol/L BUN (7-17) mg/dL Glucose (74-99) mg/dL Urine Glucose (UA) 2+ H (Negative) Microbiology - Last 24 Hours (Table) 05/13/17 02:52 Urine Culture - Preliminary Urine,Voided Thrombosis Risk Factor Assmnt - Choose All That Apply Any of the Below Risk Factors Present?: Yes Each Factor Represents 1 point: Obesity (BMI >25) Other Risk Factors: No Other congenital or acquired thrombophilia - If yes, enter type in comment: No Thrombosis Risk Factor Assessment Total Risk Factor Score: 1 Thrombosis Risk Factor Assessment Level: Low Risk
--- NOTE | 2017-05-13 23:23 | HP ---
HISTORY AND PHYSICAL HISTORY AND PHYSICAL AND DISCHARGE SUMMARY: DATE OF ADMISSION: 05/13/2017. DATE LEFT AGAINST MEDICAL ADVICE: 05/13/2017 This patient was admitted with some chest pain. Before I got to see the patient, patient decided to leave. In the meantime, patient was seen by Cardiology and did undergo a dobutamine stress echocardiogram that was negative. Seen by Dr. Beatriz Mcmillan, who thought the patient could have had a small TIA. FINAL DIAGNOSES: 1. Possible transient ischemic attack. 2. Atypical chest pain. 3. History of Arnold-Chiari malformation. 4. Asthma. 5. Obstructive sleep apnea; does not use any CPAP. 6. Anxiety and depression not otherwise specified. DISPOSITION: Patient left before she could be seen formally. For more details, refer to the chart. This is also the discharge summary for this patient. MMODL / IJN: [id number] /
[2017-05-14] MEDS ORDERED: ASPIRIN 325 MG TAB PO SCH (09:00)
--- NOTE | 2017-05-14 16:45 | ECHOF ---
Referral Reason:chest pain MEASUREMENTS -------- HEIGHT: 157.5 cm WEIGHT: 95.7 kg BP: IVSd: 1.0 cm (0.6 - 1.1) LVIDd: 4.5 cm (3.9 - 5.3) LVPWd: 1.0 cm (0.6 - 1.1) EDV(Teich): 90 ml IVSs: 1.4 cm LVIDs: 3.3 cm LVPWs: 1.3 cm ESV(Teich): 44 ml EF(Teich): 52 % %FS: 26 % SV(Teich): 47 ml LALs A4C: 5.2 cm LAAs A4C: 19.2 cm LAESV A-L A4C: 60 ml LAESV MOD A4C: 50 ml LALs A2C: 4.5 cm LAAs A2C: 13.4 cm LAESV A-L A2C: 34 ml LAESV MOD A2C: 33 ml LAESV(A-L): 48 ml LAESV Index (A-L): 24.55 ml/m Ao Diam: 3.4 cm (2.0 - 3.7) LA Diam: 3.6 cm (2.7 - 3.8) AV Cusp: 1.3 cm (1.5 - 2.6) MV E Ben: 0.61 m/s MV DecT: 304 ms MV Dec [place]: 2.0 m/s MV A Ben: 0.80 m/s MV E/A Ratio: 0.76 AV Vmax: 1.31 m/s AV maxP.84 mmHg TR Vmax: 2.05 m/s TR maxP.82 mmHg RAP: 5.00 mmHg RVSP: 21.82 mmHg FINDINGS -------- Sinus rhythm. This was a technically adequate study. The left ventricular size is normal. Left ventricular wall thickness is normal. Overall left vent ricular systolic function is normal with, an EF between 55 - 60 %. The right ventricle is normal in size and function. Normal LA size by volume 22+/-6 ml/m2. The right atrium is normal in size. The aortic valve is trileaflet, and appears structurally normal. No aortic stenosis or regurgitation. The mitral valve is normal. There is trace to mild mitral regurgitation. Trace tricuspid regurgitation present. Right ventricular systolic pressure is normal at < 35 mmHg. There is no evidence of pulmonary hypertension. The pulmonic valve was not well visualized. The aortic root size is normal. Normal inferior vena cava with normal inspiratory collapse consistent with estimated right atrial pre ssure of 5 mmHg. The pericardium is normal. There is no pericardial effusion. CONCLUSIONS -------- 1. Sinus rhythm. 2. This was a technically adequate study. 3. The left ventricular size is normal. 4. Left ventricular wall thickness is normal. 5. Overall left ventricular systolic function is normal with, an EF between 55 - 60 %. 6. Normal LA size by volume 22+/-6 ml/m2. 7. The aortic valve is trileaflet, and appears structurally normal. No aortic stenosis or regurgitati on. 8. There is trace to mild mitral regurgitation. 9. Trace tricuspid regurgitation present. 10. Right ventricular systolic pressure is normal at < 35 mmHg. 11. There is no evidence of pulmonary hypertension. 12. The pulmonic valve was not well visualized. 13. The aortic root size is normal. 14. There is no pericardial effusion. MARINE EQUIPMENT ENGINEER: Camacho Garrido RDCS
== END 2017-05-13 20:26 | disposition left against medical advice (07) ==
LOC: EC 01:39 → 3OBS 03:44 → 6SEL 10:08
PROVIDERS: ADMIT Hospitalist; ATTEND Hospitalist
DX: R07.89 Other chest pain (principal); R20.0 Anesthesia of skin; R20.2 Paresthesia of skin; R29.810 Facial weakness; R42 Dizziness and giddiness; R00.2 Palpitations; R94.31 Abnormal electrocardiogram [ECG] [EKG]; Z53.21 Procedure and treatment not carried out due to patient leaving prior to being seen by health care provider; Q07.00 Arnold-Chiari syndrome without spina bifida or hydrocephalus; R06.02 Shortness of breath; I48.0 Paroxysmal atrial fibrillation; I47.1 Supraventricular tachycardia; M79.7 Fibromyalgia; I25.2 Old myocardial infarction; F17.200 Nicotine dependence, unspecified, uncomplicated; F41.9 Anxiety disorder, unspecified; F32.9 Major depressive disorder, single episode, unspecified; J45.909 Unspecified asthma, uncomplicated; G47.33 Obstructive sleep apnea (adult) (pediatric); Z79.899 Other long term (current) drug therapy; Z79.51 Long term (current) use of inhaled steroids; Z79.891 Long term (current) use of opiate analgesic; Z88.8 Allergy status to other drugs, medicaments and biological substances; Z91.040 Latex allergy status; Z88.0 Allergy status to penicillin; Z88.2 Allergy status to sulfonamides; Z91.048 Other nonmedicinal substance allergy status; Z86.14 Personal history of Methicillin resistant Staphylococcus aureus infection; Z87.01 Personal history of pneumonia (recurrent); M54.9 Dorsalgia, unspecified; G89.29 Other chronic pain; E66.9 Obesity, unspecified; Z68.38 Body mass index [BMI] 38.0-38.9, adult; I69.354 Hemiplegia and hemiparesis following cerebral infarction affecting left non-dominant side; J32.9 Chronic sinusitis, unspecified; Z95.818 Presence of other cardiac implants and grafts
CPT/HCPCS: 99285; 96375 ×6; 96376 ×2; 96365 ×2; 96367 ×2; 96366 ×6; 96361 ×3; 36415; 93005; 93017; 93306; 93350; 85379; 83880; 80053; 82550; 82553; 83690; 83735; 84484; 85025; 85610; 85730; 86140; 81003; 81025; 84703; 87086; 87502; 70450; 71275; G0378 ×2; J1250; J1200; J1644 ×2; J2930; Q9967; J0131; C9113; J2274

== ENCOUNTER → 2017-11-29 | Outpatient (CLI) | payer BC, OTHER ==
--- NOTE | 2017-11-29 19:05 | MR ---
EXAMINATION TYPE: MR cervical spine wo con DATE OF EXAM: 11/29/2017 COMPARISON: None HISTORY: Neck pain/stiffness, headaches, BUE weakness/numbness, hx chiari decompression TECHNIQUE: Multiplanar, multisequence images of the cervical spine were acquired. C2-C3: No evidence for degenerative disc disease. No disc bulge/herniation or protrusion. No Canal stenosis. Foramina are patent bilaterally. Right paracentral disc bulging but no foraminal encroachm ent impingement. C3-C4: No evidence for degenerative disc disease. No disc bulge/herniation or protrusion. No Canal stenosis. Foramina are patent bilaterally. C4-C5: No evidence for degenerative disc disease. No disc bulge/herniation or protrusion. No Canal stenosis. Foramina are patent bilaterally. C5-C6: No evidence for degenerative disc disease. No disc bulge/herniation or protrusion. No Canal stenosis. Foramina are patent bilaterally. C6-C7: No evidence for degenerative disc disease. No disc bulge/herniation or protrusion. No Canal stenosis. Foramina are patent bilaterally. C7-T1: No evidence for degenerative disc disease. No disc bulge/herniation or protrusion. No Canal stenosis. Foramina are patent bilaterally. Cervical segments are intact. There is normal alignment. Cervical spinal cord is of normal signal. Suggestion of previous surgery involving the occiput. Scoliotic curvature noted. Shotty adenopathy in the soft tissues of the neck. IMPRESSION: 1. Scoliotic curvature with mild uncovertebral joint hypertrophy and right paracentral disc bulging C2-C3 but no evidence of foraminal encroachment, disc herniation, or canal stenosis at any of the vis ualized levels. There are 2. Postsurgical change suggestive of Chiari malformation decompression lori elyse.
== END | disposition home or self-care (01) ==
LOC: RADMRIMAIN 17:02
PROVIDERS: ATTEND Psychiatry & Neurology Neurology
DX: M41.82 Other forms of scoliosis, cervical region (principal); Z98.890 Other specified postprocedural states; Z88.0 Allergy status to penicillin; Z88.5 Allergy status to narcotic agent; Z88.6 Allergy status to analgesic agent; Z88.8 Allergy status to other drugs, medicaments and biological substances
CPT/HCPCS: 72141